=== PATIENT | female | born 1960 | race Caucasian/White ===

== ENCOUNTER 2023-01-06 09:32 | Outpatient (AMB) | payer OTHER, SELFPAY ==
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
[2023-01-06 09:40] VITALS: BP 112/82; PULSE 70; O2SAT 96; BMI 41.0
== END 2023-01-06 10:21 | disposition home or self-care (01) ==
LOC: HO.HSMS 09:32
PROVIDERS: PCP Internal Medicine; Visit Provider Psychiatry & Neurology Neurology
DX: G43.909 Migraine, unspecified, not intractable, without status migrainosus (principal); G37.9 Demyelinating disease of central nervous system, unspecified
CPT/HCPCS: 99204

== ENCOUNTER → 2023-01-06 09:32 | Outpatient (BNVA) | payer OTHER, SELFPAY | PROVIDERS: PCP Internal Medicine; Visit Provider Psychiatry & Neurology Neurology | DX: G43.909 Migraine, unspecified, not intractable, without status migrainosus (principal); G37.9 Demyelinating disease of central nervous system, unspecified | CPT/HCPCS: 99202 ==

== ENCOUNTER 2023-03-17 11:11 | Outpatient (REF) | payer OTHER, SELFPAY ==
--- NOTE | ~2023-03-17 | MR_ITS ---
EXAMINATION: MR BRAIN WITHOUT AND WITH CONTRAST CLINICAL INFORMATION: Demyelinating disease COMPARISON: Outside MRI of the brain 07/24/2019 TECHNIQUE: Multiplanar multisequence MR imaging of the brain was obtained without and following the administration of 10 mL Gadavist intravenous contrast. FINDINGS: There is no acute infarct on diffusion-weighted imaging. There is no intracranial hemorrhage on iron-sensitive imaging. No extra-axial collection or mass effect/herniation. Allowing for differences in imaging technique, stable burden (greater than 30 lesions) of demyelinating disease in the supratentorial brain compared to MRI from 07/24/2019. No definite new lesions are identified. No hydrocephalus. The ventricles are normal in morphology and size. No abnormal parenchymal or extra-axial enhancement. The major flow voids at the skull base are preserved. The midline structures are normal. The cerebellar tonsils are normally positioned. The craniocervical junction is normal. Marrow signal is within normal limits. The visualized soft tissues are without significant abnormality. No signal abnormality within the paranasal sinuses or within the mastoid air cells. MR/MR head/brain wo/w con IMPRESSION: Stable burden of demyelinating disease in the supratentorial brain compared to MRI from 07/24/2019. No evidence of active demyelination.
[2023-03-17] MEDS: gadobutroL 10 ML VIAL IVPUSH (12:41)
== END 2023-03-17 11:12 | disposition home or self-care (01) ==
LOC: HO.MRI 11:11
PROVIDERS: PCP Internal Medicine; Visit Provider Psychiatry & Neurology Neurology
DX: G37.9 Demyelinating disease of central nervous system, unspecified (principal)
CPT/HCPCS: 70553; A9585

== ENCOUNTER 2023-07-11 09:37 | Outpatient (AMB) | payer OTHER, SELFPAY ==
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
[2023-07-11 09:43] VITALS: BP 108/78; PULSE 84; RESP 16; O2SAT 95; BMI 40.1
== END 2023-07-11 10:12 | disposition home or self-care (01) ==
PROVIDERS: PCP Internal Medicine; Visit Provider Psychiatry & Neurology Neurology
DX: G43.909 Migraine, unspecified, not intractable, without status migrainosus (principal); G37.9 Demyelinating disease of central nervous system, unspecified
CPT/HCPCS: 99214

== ENCOUNTER → 2023-07-11 09:37 | Outpatient (BNVA) | payer OTHER, SELFPAY | PROVIDERS: PCP Internal Medicine; Visit Provider Psychiatry & Neurology Neurology | DX: G37.9 Demyelinating disease of central nervous system, unspecified (principal); G43.909 Migraine, unspecified, not intractable, without status migrainosus | CPT/HCPCS: 99212 ==

== ENCOUNTER 2024-03-15 09:03 | Outpatient (AMB) | payer OTHER, SELFPAY ==
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
[2024-03-15 09:04] VITALS: BP 116/78; PULSE 74; O2SAT 94; BMI 37.8
== END 2024-03-15 09:31 | disposition home or self-care (01) ==
PROVIDERS: PCP Internal Medicine; Visit Provider Psychiatry & Neurology Neurology
DX: R20.0 Anesthesia of skin (principal); R20.2 Paresthesia of skin; G43.909 Migraine, unspecified, not intractable, without status migrainosus
CPT/HCPCS: 99214; G2211

== ENCOUNTER → 2024-03-15 09:03 | Outpatient (BNVA) | payer OTHER, SELFPAY | PROVIDERS: PCP Internal Medicine; Visit Provider Psychiatry & Neurology Neurology | DX: G43.909 Migraine, unspecified, not intractable, without status migrainosus (principal); R20.0 Anesthesia of skin; R20.2 Paresthesia of skin | CPT/HCPCS: 99212 ==

== ENCOUNTER 2024-03-29 14:34 | Outpatient (REF) | payer OTHER, SELFPAY ==
--- NOTE | 2024-03-29 14:38 | EMG_ITS ---
Chief complaint: Patient reports new onset left leg numbness 2 months ago. She said it started only after she banged left lateral leg while cleaning at home and developed a swelling in that area. She has numbness on left lateral foot and plantar aspect. One month after, noted right foot getting numb as well. Denies any back pain. History of diet-controlled diabetes and thyroid disorder. History of stroke 6 years ago. Reason for referral: Evaluate for neuropathy Referred by: Dr. Stewart Procedure done: Bilateral lower extremity NCS/EMG Precautions and/or limitations: None The limb temperature was monitored continuously and remained between 32-36 degrees C during the performance of the NCS. Nerve Conduction Studies Anti Sensory Summary Table ?Stim Site NR Onset (ms) Norm Onset (ms) Peak (ms) Norm Peak (ms) O-P Amp (?V) Norm O-P Amp Site1 Site2 Delta-0 (ms) Dist (cm) Alec (m/s) Norm Alec (m/s) Left Sural Anti Sensory (Lat Mall) Calf ? 2.4 2.8 <4.0 1.1 >5.0 Calf Lat Mall 2.4 14.0 58 ? 2.7 3.0 1.9 Right Sural Anti Sensory (Lat Mall) Calf ? 2.7 3.1 <4.0 3.6 >5.0 Calf Lat Mall 2.7 14.0 52 Motor Summary Table ?Stim Site NR Onset (ms) Norm Onset (ms) O-P Amp (mV) Norm O-P Amp iAmp (mV) Amp (1st) (%) Site1 Site2 Delta-0 (ms) Dist (cm) Alec (m/s) Norm Alec (m/s) Left Peroneal Motor (Ext Dig Brev) Ankle ? 4.9 <4.0 2.2 >2.5 2.5 100.0 Ankle Ext Dig Brev 4.9 0.0 B Fib ? 11.1 2.5 2.8 113.6 B Fib Ankle 6.2 33.5 54 >40 Poplt ? 12.1 2.3 2.8 104.5 Poplt B Fib 1.0 4.0 40 >40 Right Peroneal Motor (Ext Dig Brev) Ankle ? 4.2 <4.0 2.4 >2.5 2.5 100.0 Ankle Ext Dig Brev 4.2 0.0 B Fib ? 11.3 1.8 2.0 75.0 B Fib Ankle 7.1 33.0 46 >40 Poplt ? 12.1 1.8 2.0 75.0 Poplt B Fib 0.8 4.0 50 >40 Left Tibial Motor (Abd Magana Brev) Ankle ? 4.8 <5 3.9 >2.5 6.3 100.0 Ankle Abd Magana Brev 4.8 0.0 Knee ? 13.7 3.4 4.5 87.2 Knee Ankle 8.9 39.0 44 >40 Right Tibial Motor (Abd Magana Brev) Ankle ? 3.9 <5 5.6 >2.5 7.9 100.0 Ankle Abd Magana Brev 3.9 0.0 Knee ? 15.3 1.7 2.0 30.4 Knee Ankle 11.4 42.0 37 >40 EMG ?Side Muscle Nerve Root Ins Act Fibs Psw Amp Dur Poly Recrt Int Pat Comment Right AbdHallucis MedPlantar S1-2 Incr Nml Nml Nml Nml 0 Nml Complete Right AntTibialis Dp Br Peron L4-5 Nml Nml Nml Nml Nml 0 Nml Complete Right PostTibialis Tibial L5, S1 Nml Nml Nml Nml Nml 0 Nml Complete Right MedGastroc Tibial S1-2 Nml Nml Nml Nml Nml 0 Nml Complete Right VastusMed Femoral L2-4 Nml Nml Nml Nml Nml 0 Nml Complete Left AbdHallucis MedPlantar S1-2 Nml Nml Nml Nml Nml 0 Nml Complete Left AntTibialis Dp Br Peron L4-5 Nml Nml Nml Nml Nml 0 Nml Complete Left PostTibialis Tibial L5, S1 Nml Nml Nml Nml Nml 0 Nml Complete Left MedGastroc Tibial S1-2 Nml Nml Nml Nml Nml 0 Nml Complete Left VastusMed Femoral L2-4 Nml Nml Nml Nml Nml 0 Nml Complete Paraspinal EMG ?Side Muscle Nerve Root Ins Act Fibs Psw Comment Right Lumbar Upper Rami Nml Nml Nml Right Lumbar Mid Rami Nml Nml Nml Right Lumbar Lower Rami Nml Nml Nml Left Lumbar Upper Rami Nml Nml Nml Left Lumbar Mid Rami Nml Nml Nml Left Lumbar Lower Rami Nml Nml Nml FINDINGS: Left peroneal nerve showed prolonged distal latency, small amplitude and slight slowing conduction velocity across fibular neck. Right peroneal nerve showed prolonged distal latency, small amplitude and normal conduction velocity. Right tibial nerve showed normal distal latency, small amplitude and mildly slow conduction velocity. Left tibial nerve within normal. Bilateral sural nerves showed normal peak latencies but very small amplitudes. Needed high stimulation to get any results, otherwise it would have been nonreactive. Concentric needle EMG was performed in selected muscles of the bilateral lower extremity and lumbar paraspinals. Study revealed signs of electric abnormalities as shown in the table above. Right AH showed increased insertional activity. IMPRESSION: 1. This is an abnormal study. 2. 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 3. There is no electrodiagnostic evidence for lumbosacral plexopathy or lumbar radiculopathy. Thank you for your kind referral. Bing Dixon MD, [place] Board Certified, [place] [employer] and [employer] (ABPMR) Board Certified, [place] Board [employer] Electrodiagnostic [employer] (ABEM) CODIN [id number] x 2 MTDD
== END 2024-03-29 14:35 | disposition home or self-care (01) ==
LOC: HO.NEURO 14:34
PROVIDERS: PCP Internal Medicine; Visit Provider Psychiatry & Neurology Neurology
DX: R20.0 Anesthesia of skin (principal); R20.2 Paresthesia of skin
CPT/HCPCS: 95886; 95909

== ENCOUNTER → 2024-03-29 14:38 | Outpatient (BNV) | payer OTHER, SELFPAY | PROVIDERS: PCP Internal Medicine; Visit Provider Physical Medicine & Rehabilitation | DX: R20.2 Paresthesia of skin (principal); R20.0 Anesthesia of skin; G62.89 Other specified polyneuropathies | CPT/HCPCS: 95886; 95909 ==

== ENCOUNTER 2024-05-16 11:30 | Outpatient (AMB) | payer OTHER, SELFPAY ==
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
[2024-05-16 11:35] VITALS: BMI 38.1
== END 2024-05-16 12:12 | disposition home or self-care (01) ==
PROVIDERS: PCP Internal Medicine; Visit Provider Psychiatry & Neurology Neurology
DX: G62.9 Polyneuropathy, unspecified (principal); G43.909 Migraine, unspecified, not intractable, without status migrainosus
CPT/HCPCS: 99214

== ENCOUNTER → 2024-05-16 11:30 | Outpatient (BNVA) | payer OTHER, SELFPAY | PROVIDERS: PCP Internal Medicine; Visit Provider Psychiatry & Neurology Neurology | DX: G62.9 Polyneuropathy, unspecified (principal); G43.909 Migraine, unspecified, not intractable, without status migrainosus | CPT/HCPCS: 99212 ==

== ENCOUNTER → 2024-07-30 09:56 | Outpatient (BNV) | payer OTHER, SELFPAY | PROVIDERS: PCP Internal Medicine; Visit Provider Radiology Diagnostic Radiology | DX: R41.82 Altered mental status, unspecified (principal) | CPT/HCPCS: 70551 ==

== ENCOUNTER 2024-07-30 09:57 | Outpatient (REF) | payer OTHER, SELFPAY ==
--- NOTE | ~2024-07-30 | MR_ITS ---
EXAMINATION: MR BRAIN WITHOUT CONTRAST CLINICAL INFORMATION: Cognitive and behavioral changes. COMPARISON: March 17, 2023. TECHNIQUE: MRI of the brain was obtained using routine sequences without contrast. FINDINGS: No restricted diffusion. Bilateral, multifocal, patchy, subcortical and deep white matter hyperintense T2 FLAIR signal abnormality involving centrum semiovale and patel radiata both hemispheres, the most conspicuous in the frontal regions. No signal abnormality within the infratentorial compartment. Flow-void signal within the main cerebral vessels is normal. Sellar/suprasellar region demonstrated intrasellar CSF prominence suggesting diaphragmatic sella insufficiency. Craniocervical junction is intact and normal. No signal abnormality within the orbits. No signal abnormality within the posterior cranial fossa contents. MR/MR head/brain wo con IMPRESSION: Consider demyelinating plaques, supratentorial compartment with similar morphology and distribution. No acute brain abnormality. Electronically signed by: Joce Coyle MD 07/30/2024 11:05 AM [place]
--- OUTSIDE RECORDS SUMMARY | 2024-07-30 10:33 | XMS_ITS | Encounter Summary ---
Author Organization [facility] Address [address] [place] [address] Care Team Providers Care Rug Hooker Name Role Phone Zana Chappell MD Primary Care Provider [phone] Reason for Visit * Reason Comments Follow-up F/u Maury foot pain Encounter Details Date Type Department Care Team ([facility] st Contact Info) Description 07/04/2024 10:00 AM EST Office Visit Orthopedic Surgery - [place] [address] [phone] Dewayne Cortez, DPM [address] [address] Arthritis of left ankle (Primary Dx); Bilateral foot pain; Bilateral ankle pain; Plantar fascial fibromatosis; Arthritis of right ankle; Posterior tibial tendon dysfunction (PTTD) of both lower extremities Social History Tobacco Use Types Packs/Day Years Used Date Smoking Tobacco: Never Smokeless Tobacco: Never Tobacco Cessation:Counseling Given: Not Answered Alcohol Use Standard Drinks/Week Comments No 0 (1 standard drink = 0.6 oz pur e alcohol) Sex and Gender Information Value Date Recorded Sex Assigned at Female 07/27/2024 11:46 AM EST Gender Identity Female 07/27/2024 11:46 AM EST Sexual Orientation Not on file Job Start Date Occupation Industry Not on file Not on file Not on file documented as of this encounter Last Filed Vital Signs Vital Sign Reading Time Taken Comments Blood Pressure - - Pulse - - Temperature - - Respiratory Rate - - Oxygen Saturation - - Inhaled Oxygen Concentration - - Weight 105 kg (232 lb) 07/04/2024 9:59 AM EST Height 167.6 cm (5' 5.98 ) 07/04/2024 9:59 AM ES T Body Mass Index 37.46 07/04/2024 9:59 AM EST documented in this encounter Progress Notes * Dewayne Cortez, VALENTINA - 07/04/2024 10:00 AM ESTAssociated Order(s): Injection tendon or ligament Post-Procedure Diagnose(s): Plantar fascial fibromatosis S Patient presents with multiple complaints and she recently had EMG/NCV study to better evaluate forher nerve conductive study and spine states she does not really have any back pain but did get the study done and is awaiting the results does not that she has some other neurological conditions associated worsening pain discomfort of her heels Patient reports that she was worked up for an infection of her right great toe there is no ingrown nail she did call her primary care doctor who was able to get her in starting a course of oral antibiotics reports that her right great toe is completely resolved Patient also reports that she had a heel injection last appointment she states that she feels like did not work she states she is wonder if it is because she got too active after the injection she went walking heavily on her foot and states the pain still throbs and did not improve at today's appointment is the same as prior to the injection she would like to know what her treatment options are she is willing to consider another injection today x-rays were taken of both feet ROS: GENERAL: Pt denies nausea, fever, vomiting, chills, or shortness of breath. Pt in NAD. CARDIOLOGY: pt denies chest pain, palpitations LUNGS: pt denies shortness of breath MUSCULOSKELETAL: See HPI, otherwise no joint pain or swelling, back pain, or muscle pain. SKIN: see HPI, otherwise no lesions, rash or itching NEURO: No persistent headache, weakness or numbness The remainder of the review of systems is noncontributory PAST MEDICAL HISTORY: Patient Active Problem List Diagnosis Code Seasonal allergies J30.2 Edema R60.9 GERD (gastroesophageal reflux disease) K21.9 Varicose veins I83.90 Thrombophlebitis I80.9 Obesity (BMI 30-39.9) E66.9 Vitamin D deficiency E55.9 History of gastric ulcer Z87.11 HTN (hypertension) I10 DVT (deep vein thrombosis) in O22.30 Colonic polyp K63.5 Diverticulosis of colon K57.30 History of CVA (cerebrovascular accident) without residual deficits Z86.73 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 (HCC) G37.9 Anxiety F41.9 Hypothyroidism E03.9 Hyperlipidemia E78.5 Migraine G43.909 Depression F32.A Type 2 diabetes mellitus without complication, without long-term current use of insulin (HCC) E11.9 Mild cognitive disorder F09 Postsurgical dumping syndrome K91.1 Orthostatic hypotension I95.1 Female cystocele N81.10 Hypoglycemia E16.2 History of COVID-19 Z86.16 Pruritus L29.9 Moderate persistent asthma J45.40 Skin cancer C44.90 Multiple pulmonary nodules R91.8 SOCIAL HISTORY: Social History Tobacco Use Smoking status: Never Passive exposure: Never Smokeless tobacco: Never Substance Use Topics Alcohol use: No History Last Reviewed by Josefina Elizalde on 03/09/2024 at 11:46 AM Sections Reviewed Tobacco ACTIVE MEDICATIONS: Current Outpatient Medications Medication Sig Dispense Refill phentermine 15 MG capsule Take 1 Capsule by mouth every morning for 30 days. 30 Capsule 2 topiramate (TOPAMAX) 50 MG tablet Take 2 Tablets by mouth daily for 30 days. 60 Tablet 1 Disposable Gloves Misc 2 Each by Does not apply route daily for 30 days. Height: Ht Readings from Last 1 Encounters: 11/17/23 : 5' 6 (1.676 m) Weight: Wt Readings from Last 1 Encounters: 11/17/23 : 243 lb 12.8 oz (110.6 kg) Duration of need: indefinite Diagnosis: Incontinence of Urine[R32] Edema [R60.9] Vertigo[R42] Fall Risk[Z91.81] Class 3 severe obesity due to excess calories with body mass index (BMI) of 40.0 to 44.9 in adult (HCC) [E66.01, Z68.41] History of CVA (cerebrovascular accident) without residual deficits [Z86.73] 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 (HCC) [G37.9] Type 2 diabetes mellitus without complication, without long-term current use of insulin (HCC) [E11.9] Mild cognitive disorder [F09] Orthostatic hypotension [I95.1] Patient phone: [phone] (home) 2 Packet 11 ALBUTEROL SULFATE (ProAir HFA) 108 (90 Base) MCG/ACT Aero Soln Inhale 2 Puffs into the lungs every 6 hours as needed for Cough, Wheezing or Shortness of Breath for up to 30 days. 1 inhaler and 11 refills 1 g 11 budesonide-formoterol (Symbicort) 160-4.5 MCG/ACT inhaler Inhale 2 Puffs into the lungs 2 times daily. 1 inhaler and 11 refills 1 g 11 cetirizine (ZYRTEC) 10 MG tablet Take 1 Tablet by mouth daily. 90 Tablet 1 aspirin (Aspirin 81) 81 MG EC tablet Take 1 Tablet by mouth daily. 30 Tablet 5 pantoprazole (PROTONIX) 40 MG tablet Take 1 Tablet by mouth daily. 90 Tablet 0 simvastatin (ZOCOR) 5 MG tablet Take 1 Tablet by mouth at bedtime. 90 Tablet 1 famotidine (PEPCID) 20 MG tablet Take 1 Tablet by mouth 2 times daily. 180 Tablet 1 amlodipine (NORVASC) 5 MG tablet Take 2 Tablets by mouth daily. 180 Tablet 1 levothyroxine (SYNTHROID, LEVOTHROID) 88 MCG tablet Take 1 tablet by mouth once daily 90 Tablet 0 Cholecalciferol (Vitamin D3) 50 MCG (2000 UT) Tab Take 1 tablet by mouth once daily 90 Tablet 0 Multiple Vitamins-Minerals (Multivital) Tab Take 1 Tablet by mouth daily. 90 Tablet 1 Wheat Dextrin (Benefiber) Powder Take 4 g by mouth daily. 120 g 0 Glucose Blood (FREESTYLE LITE) Strip Use to test blood sugar once daily for hypoglycemia Dx: e11.9 100 Strip 1 Blood Glucose Monitoring Suppl (FreeStyle Lite) Device Check blood sugar daily 1 Each 0 FreeStyle Lancets Misc Inject 1 Strip into the skin daily. Use to check BS as needed for hypoglycemia 100 Each 5 budesonide-formoterol (Symbicort) 160-4.5 MCG/ACT inhaler Inhale 2 Puffs into the lungs 2 times daily for 90 days. 3 g 3 furosemide (LASIX) 20 MG tablet TAKE 1 TABLET BY MOUTH ONCE DAILY NEEDED FOR EDEMA 30 Tablet 0 Meclizine HCl 12.5 MG Tab Take 1 Tablet by mouth 3 times daily as needed (dizziness). 90 Tablet 0 fluticasone 50 MCG/ACT nasal spray Use 1 spray(s) in each nostril once daily Strength: 50 MCG/ACT 16 g 1 nitroGLYCERIN (NITROSTAT) 0.[address] 1 Tablet under the tongue every 5 minutes as needed for Chest pain. 1 mL 0 Diclofenac Sodium 1 % Gel Apply 1 g topically 3 times daily as needed (bilateral knee O/A). 450 g 1 hydrOXYzine (ATARAX) 25 MG tablet TAKE 1 TABLET BY MOUTH TWICE DAILY NEEDED FOR ANXIETY escitalopram (LEXAPRO) 20 MG tablet Take 20 mg by mouth daily. Glucagon (BAQSIMI ONE PACK) 3 MG/DOSE Powder 1 Units by Nasal route as needed (Hypoglycemia). 10 Each 0 sumatriptan (IMITREX) 100 MG tablet Take 1 Tab by mouth daily as needed for Migraine. May repeat dose once after 2 hours, if needed. 6 Tab 0 Zolpidem Tartrate 10 MG Tab Take 1 tablet by mouth at bedtime as needed. No current facility-administered medications for this visit. ALLERGIES: Lipitor [atorvastatin]; Seasonal allergies; and Trazodone PHYSICAL EXAM: Weight 235 lb (106.6 kg). Estimated body mass index is 37.93 kg/m?? as calculated from the following: Height as of 03/20/24: 5' 6 (1.676 m). Weight as of this encounter: 235 lb (106.6 kg). BMI PLAN BMI BMI is greater than 25.0 (above the normal range) - see Plan PODIATRIC EXAMINATION: GENERAL: Patient appears well nourished, with NAD. VASCULAR: Dorsalis pedis pulses are 1/4 bilaterally and Posterior tibial pulses are 1/4 bilaterally. Capillary filling time within normal limits the digits. No pallor on elevation or rubor on dependency. Diminished hair growth. Present varicosities. +1 pitting edema bilaterally denies rest pain or claudication pain. NEUROLOGICAL: Sharp/dull sensation intact, protective sensation intact 10/10 with 5.07 semmes teresa bilaterally, vibratory sensation with tuning fork intact to the tibial tuberosity. ORTHOPEDIC: Good muscle strength 5/5 of all flexors and extensors. Dorsi flexion of ankle ,0 degrees, plantar flexion WNL. No muscle atrophy. Weakness the posterior tibial tendon bilaterally 4 out of5 to 3 out of 5 muscle strength bilateral unable to perform single or double heel raise Palpation of the sinus tarsi bilaterally arthritis of the subtalar joint noted lateral gutter and ankle joint noted with lateral impingement ankle joint bilaterally Heel pain localized to the medial tubercle of the right and left calcaneus. Negative heel squeeze pain, Negative lateral calcaneal wall pain, Negative posterior heel pain. Negative pain of the achilles insertion. Negative tinells. Negative pain of the posterior tibial tendon. No palpable fibrous mass mid arch. DERMATOLOGICAL:.Hyperkeratotic tissue subfifth metatarsal bilaterally with diffuse pain on palpation of metatarsal head the fifth BIOMECHANICS: STJ ROM wnl, MTJ ROM crepitation bilateral midtarsal joint worse of the third and second metatarsal cuneiform articulation bilaterally overlying extensor tendon tendons at the inferior aspect of the retinaculum are irritated bilateral without muscle deficits, 1st MPJ ROM wnl. Diffuse discomfort/pain on palpation of the fifth metatarsal bilaterally underlying callus Ovation of the lateral bed of the right ankle joint No pain in the left forefoot some localized irritation of the sural nerve left foot IMAGING: [facility] Imaging Result Report Patient: Loida Easley Date of Service: 12/03/21 Patient Gender: Female Ordering Provider: Dewayne Cortez : 1960 Final ORTHO X-RAY FOOT (3 VIEWS) Exam Date: 12/03/2021 1:27 PM Ordering Diagnosis: Foot pain, bilateral Right foot weightbearing 3 views Findings Rectus foot type with slight bunion deformity prominent at the interphalangeus Lateral view most consistent with infracalcaneal spurring moderate to severe Impression Significant calcaneal spurring with rather rectus foot type Left foot weightbearing 3 views Findings Rectus foot type with slight bunion deformity prominent at the interphalangeus Lateral view most consistent with infracalcaneal spurring moderate to severe Impression Significant calcaneal spurring with rather rectus foot type Reading Physician: Signed by: Dewayne Cortez DPM on 12/03/2021 6:31 PM This report was sent to: Dewayne Cortez at [address] [place] [address] [place] [address]. IMPRESSION: 1. Arthritis of left ankle 2. Bilateral foot pain XR Foot 3+ Views bilat 3. Bilateral ankle pain XR Ankle 3+ Views Right 4. Plantar fascial fibromatosis 5. Arthritis of right ankle 6. Posterior tibial tendon dysfunction (PTTD) of both lower extremities PLAN: Radiographs reviewed of both ankles and both feet consistent with osteoarthritic changes pes planusfoot type no acute fracture Worsening degenerative changes of both foot and ankles discussed and reviewed Patient's had issues being consistent with topical anti-inflammatories or utilizing any of the custom AFO braces UCBLs previously prescribed Due to her weight and age she is not a good surgical candidate for primary hindfoot fusions is at high risk for complication Alternative surgical options and nonsurgical options were discussed and reviewed Surgery discussed with patient in detail that discussed with patient that she is advanced arthritisof both feet she may benefit from primary arthrodesis of midtarsal joint given chronic pain discomfort recovery from surgery is 3 months which patient says she is not able to tolerate Follow-up in 2 weeks Strapping padding applied to the left foot and ankle Injection of plantar fascia left heel was performed after consent was obtained. Risks and benefits discussed in detail with patient and include but are not limited to risk of infection risk of recurrence risk of steroid flare. Injection given to the left heel of half cc 1% lidocaine half cc of Kenalog 40 Injection tendon or ligament Indications: pain Details: 25 G needle Medications: 0.5 mL lidocaine (PF) 1 %; 20 mg triamcinolone acetonide 40 mg/mL Informed Consent: Site: Foot ligament tendon Dewayne Cortez DPM documented in this encounter Plan of Treatment Upcoming Encounters Date Type Department Care Team (Late st Contact Info) Description 07/31/2024 3:00 PM EST Appointment [facility] CT Scan [address] [place] [phone] 08/08/2024 3:15 PM EST Office Visit Thoracic Surgery - [place] [address] [phone] Dewayne Stephens PA [address] [address] 08/20/2024 2:30 PM EST Office Visit Internal Medicine - [place] [address] [place] [address] Zana Chappell MD [address] [place] [address] 08/21/2024 10:45 AM EST Office Visit Orthopedic Surgery - [place] [address] [facility] 250 [place] [phone] Dewayne Cortze DPM [address] [address] 09/06/2024 10:30 AM EDT Office Visit Pulmonolgy - [place] 175 [facility] 200 [place] [phone] Ronda Henry MD 175 [facility] 200 [place] [address] 10/02/2024 10:45 AM EDT Office Visit Bariatric Surgery [facility] [address] [phone] Tommie Guy MD [address] [address] 01/28/2025 11:00 AM EDT Appointment Radiology Department [address] [phone] 03/14/2025 10:30 AM EDT Office Visit Vascular Surgery - [place] 300 [facility] [address] [place] [address] Sandhya Eng PA 300 [facility] [address] [place] [address] documented as of this encounter Procedures Procedure Name Priority Date/Time Associated Diagnosis Comments INJECTION TENDON OR LIGAMENT Routine 07/04/2024 10:00 AM EST Plantar fascial fibromatosis documented in this encounter Results * XR Ankle 3+ Views Right (07/04/2024 10:07 AM EST) Anatomical Region Laterality Modality Lower Extremities, Ankle Right Compute d Radiography Narrative 07/04/2024 12:34 PM EST Right ankle ??3 views No fracture. No radiopaque foreign ?joint spaces ? Arthritis ?? moderate ?? Left ankle ??3 views No fracture. No radiopaque foreign ?joint spaces ? Arthritis ?? moderate ?? Dewayne Cortez DPM IMG XR PROCEDURES * XR Foot 3+ Views bilat (07/04/2024 10:07 AM EST) Anatomical Region Laterality Modality Lower Extremities, Foot Bilateral Computed Radiography Narrative 07/04/2024 12:34 PM EST Right foot ??3 views No fracture. No radiopaque foreign ?joint spaces ? Arthritis ?? moderate ?? Left foot 3 views No fracture. No radiopaque foreign ?joint spaces ? Arthritis ?? moderate ?? Dewayne Cortez DPM IMG XR PROCEDURES * Injection tendon or ligament (07/04/2024 10:00 AM EST) Narrative Dewayne Cortez DPM - 07/04/2024 10:00 AM EST Dewayne Cortez DPM ? 07/04/2024 12:36 PM Injection tendon or ligament Indications: pain Details: 25 G needle Medications: 0.5 mL lidocaine (PF) 1 %; 20 mg triamcinolone acetonide 40 mg/mL Informed Consent: ??Site: ??Foot ligament tendon Dewayne Cortez DPM IN CLINIC/BEDSIDE ORDERABLES documented in this encounter Visit Diagnoses Diagnosis Arthritis of left ankle- Primary Bilateral foot pain Bilateral ankle pain Plantar fascial fibromatosis Arthritis of right ankle Posterior tibial tendon dysfunction (PTTD) of both lower extremities Encounter for screening mammogram for breast cancer documented in this encounter Administered Medications Inactive Administered Medications - up to 3 most recent administrations Medication Order MAR Action Action Date Dose Rate Site lidocaine (PF) (XYLOCAINE-MPF) 1 % injection 0.5 mL 0.5 mL, injection, Once PRN Procedure, Starting on Tue07/04/24 at 1000, For 1 dose Given 07/04/2024 10:00 AM EST 0.5 mL triamcinolone acetonide (KENALOG-40) 40 mg/mL injection 20 mg 20 mg, intra-articular, Once PRN Procedure, Starting on Tue07/04/24 at 1000, For 1 dose Given 07/04/2024 10:00 AM EST 20 mg documented in this encounter Additional Health Concerns Assessment Noted Time PHQ-9 Depression Total Score: 18 024 9:55 AM EST documented as of this encounter Care Teams Rug Hooker Relationship Specialty Start Date End Date Zana Chappell MD [address] [place] [id number] PCP - General Internal Medicine 01/03/19 documented as of this encounter
--- OUTSIDE RECORDS SUMMARY | 2024-07-30 10:33 | XMS_ITS | Encounter Summary ---
Author Organization [facility] Address [address] [place] [address] Care Team Providers Care Financial Services Associate Name Role Phone Zana Chappell MD Primary Care Provider [phone] Reason for Visit * Reason Onset Date Comments Med Refill 06/05/2024 Encounter Details Date Type Department Care Team ([facility] Contact Info) Description 06/05/2024 Telephone Internal Medicine - [facility] [address] [place] [phone] Zana Chappell MD [address] [place] [phone] Med Refill Social History Tobacco Use Types Packs/Day Years Used Date Smoking Tobacco: Never Smokeless Tobacco: Never Alcohol Use Standard Drinks/Week Comments No 0 (1 standard drink = 0.6 oz pur e alcohol) Sex and Gender Information Value Date Recorded Sex Assigned at Female 07/27/2024 11:46 AM EST Gender Identity Female 07/27/2024 11:46 AM EST Sexual Orientation Not on file Job Start Date Occupation Industry Not on file Not on file Not on file documented as of this encounter Progress Notes * Trish Elliott - 06/05/2024 8:08 AM EST JENN 02/20/24 06/14/24 Daily-Adelia Multivitamin Oral Tablet Take 1 tablet by mouth once daily 90 tablets documented in this encounter Plan of Treatment Upcoming Encounters Date Type Department Care Team (Late st Contact Info) Description 07/31/2024 3:00 PM EST Appointment [facility] CT Scan [address] [place] [phone] 08/08/2024 3:15 PM EST Office Visit Thoracic Surgery - [address] [facility] [address] [place] [address] Dewayne Stephens PA 299 [facility] 410 [place] [address] 08/20/2024 2:30 PM EST Office Visit Internal Medicine - [place] [address] [place] [address] Zana Chappell MD [address] [place] [address] 08/21/2024 10:45 AM EST Office Visit Orthopedic Surgery [facility] 250 175 [facility] 250 [place] [phone] Dewayne Cortez DPM [address] [address] 09/06/2024 10:30 AM EDT Office Visit Pulmonolgy - [address] 175 [facility] 200 [place] [phone] Ronda Henry MD 175 [facility] 200 [place] [address] 10/02/2024 10:45 AM EDT Office Visit Bariatric Surgery [facility] [address] [phone] Tommie Guy MD [address] [address] 01/28/2025 11:00 AM EDT Appointment Radiology Department - [address] [address] 03/14/2025 10:30 AM EDT Office Visit Vascular Surgery - [address] [place] [address] Sandhya Eng PA [address] [place] [address] [place] [address] documented as of this encounter Visit Diagnoses Not on filedocumented in this encounter Care Teams Financial Services Associate Relationship Specialty Start Date End Date Zana Chappell MD [address] [place] [phone] PCP - General Internal Medicine 01/03/19 documented as of this encounter
--- OUTSIDE RECORDS SUMMARY | 2024-07-30 10:33 | XMS_ITS | Encounter Summary ---
Author Organization [facility] Address [address] [place] [address] Care Team Providers Care Clinical Pharmacy Technician Name Role Phone Zana Chappell MD Primary Care Provider [phone] Reason for Visit * Reason Comments Follow-up F/u Maury foot pain Encounter Details Date Type Department Care Team ([facility] st Contact Info) Description 07/18/2024 10:30 AM EST Office Visit Orthopedic Surgery - [place] [address] [phone] Dewayne Cortez, DPM [address] [address] Plantar fascial fibromatosis (Primary Dx); Arthritis of left ankle; Posterior tibial tendon dysfunction (PTTD) of both lower extremities; Diabetic mononeuropathy simplex (CMS/HCC) Social History Tobacco Use Types Packs/Day Years [...] - Inhaled Oxygen Concentration - - Weight 106 kg (233 lb) 07/18/2024 10:53 AM EST Height 167.6 cm (5' 5.98 ) 07/18/2024 10:[address] Body Mass Index 37.63 07/18/2024 10:53 AM EST documented in this encounter Progress Notes * Dewayne Cortez, DPM - 07/18/2024 10:30 AM EST S Patient presents today saying that injections have not been helping she brought her sister's appointment still states she getting left foot pain throbbing achy is a 5 out of 10 has been using insole with minimal improvement does not does not she see neurology as well states that she is getting throbbing achy pain in her left foot to 5 out of 10 and not improving ROS: GENERAL: Pt denies nausea, fever, vomiting, [...] (BMI) of 40.0 to 44.9 in adult ([facility]) [E66.01, Z68.41] History of CVA (cerebrovascular accident) without residual deficits [Z86.73] 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 IMPRESSION: 1. Plantar fascial fibromatosis 2. Arthritis of left ankle 3. Posterior tibial tendon dysfunction (PTTD) of both lower extremities 4. Diabetic mononeuropathy simplex (CMS/HCC) PLAN: Radiographs reviewed of both ankles and both feet consistent with osteoarthritic changes pes planusfoot type no acute fracture Patient follow-up with neurology has neuritis diabetics Worsening degenerative changes of both foot and ankles discussed and reviewed Patient's had issues being consistent with topical anti-inflammatories or utilizing any of the custom fracture boot for and dispensed he went to left lower extremities Follow-up in 1 month Dewayne Cortez DPM documented in this encounter Plan of Treatment Upcoming Encounters Date Type Department Care Team ([facility] st Contact Info) Description 07/31/2024 3:00 PM EST Appointment [facility] CT Scan [address] [place] [address] 08/08/2024 3:15 PM EST Office Visit Thoracic Surgery - [place] 299 [facility] 410 [place] [address] Dewayne Stephens PA 299 [facility] 410 [place] [address] 08/20/2024 2:30 PM EST Office Visit Internal Medicine - [facility] 305 [place] [phone] Zana Chappell MD [address] [place] [address] 08/21/2024 10:45 AM EST Office Visit Orthopedic Surgery [facility] 250 175 [facility] 250 [place] [phone] Dewayne Cortez DPM [address] [address] 09/06/2024 10:30 AM EDT Office Visit Pulmonolgy - [place] 175 [facility] 200 [place] [phone] Ronda Henry MD 175 [facility] 200 [place] [address] 10/02/2024 10:45 AM EDT Office Visit Bariatric Surgery [facility] [address] [phone] Tommie Guy MD [address] [address] 01/28/2025 11:00 AM EDT Appointment Radiology Department [address] [phone] 03/14/2025 10:30 AM EDT Office Visit Vascular Surgery - [place] [address] [place] [address] Sandhya Eng PA [address] [place] [address] [place] [address] documented as of this encounter Visit Diagnoses Diagnosis Plantar fascial fibromatosis- Primary Arthritis of left ankle Posterior tibial tendon dysfunction (PTTD) of both lower extremities Diabetic mononeuropathy simplex (CMS/HCC) Type II or unspecified type diabetes mellitus with neurological manifestations, not stated as uncontrolled Encounter for screening mammogram for breast cancer documented in this encounter Additional Health Concerns Assessment Noted Time PHQ-9 Depression Total Score: 18 024 9:55 AM EST documented as of this encounter Care Teams Clinical Pharmacy Technician Relationship Specialty Start Date End Date Zana Chappell MD [address] [place] [address] PCP - General Internal Medicine 01/03/19 documented as of this encounter
--- OUTSIDE RECORDS SUMMARY | 2024-07-30 10:33 | XMS_ITS | Clinical Summary ---
Author Organization 175 [facility] Address [address] [place] [address] Phone Care Team Providers Care Laminating Machine Offbearer Name Role Phone Zana Chappell MD Primary Care Provider [phone] Allergies Active Allergy Reactions Criticality Noted Date Comments Atorvastatin 08/27/2015 Other Reaction(s): OTHER Muscle cramps Atorvastatin Calcium 04/13/2024 Other 12/03/2015 Seasonal Allergies Trazodone Swelling 08/17/2016 Medications Medication Sig Dispensed Refills Start Date End Date Status amLODIPine (NORVASC) 5 mg tablet Take 2 Tablets by mouth daily. 4 Active blood-glucose meter kit Check blood sugar daily 4 Active budesonide-form oteroL (SYMBICORT) 160-4.5 mcg/actuation inhaler Inhale 2 Puffs into the lungs 2 times daily. 1 inhaler and 11 refills 3 03/09/20 25 Active cetirizine (ZyrTEC) 10 mg tablet Take 1 Tablet by mouth daily. 3 Active cholecalciferol (VITAMIN D-3) 50 mcg (2,000 unit) tablet Take 1 tablet by mouth once daily 4 Active escitalopram (LEXAPRO) 20 mg tablet Take 20 mg by mouth daily. 2 Active famotidine (PEPCID) 20 mg tablet Take 1 Tablet by mouth 2 times daily. 4 Active fluticasone propionate (FLONASE) 50 mcg/actuation nasal spray Use 1 spray(s) in each nostril once daily Strength: 50 MCG/ACT 3 Active FREESTYLE LANCETS MISC Inject 1 Strip into the skin daily. Use to check BS as needed for hypoglycemia 4 Active furosemide (LASIX) 20 mg tablet TAKE 1 TABLET BY MOUTH ONCE DAILY NEEDED FOR EDEMA 3 Active glucagon (Baqsimi) 3 mg/actuation nasal spray 1 Units by Nasal route as needed (Hypoglycemia). 0 Active blood sugar diagnostic (FreeStyle Lite Strips) test strip Use to test blood sugar once daily for hypoglycemia Dx: e11.9 4 Active FA/mv,Ca,iron,m in/lycopene/lut (MULTIVITAL ORAL) Take 1 Tablet by mouth daily. 4 Active simvastatin (ZOCOR) 5 mg tablet Take 1 Tablet by mouth at bedtime. 4 Active SUMAtriptan (IMITREX) 100 mg tablet Take 1 Tab by mouth daily as needed for Migraine. May repeat dose once after 2 hours, if needed. 9 Active zolpidem (AMBIEN) 10 mg tablet Take 1 tablet by mouth at bedtime as needed. Active nitroglycerin (NITROSTAT) 0.4 mg SL tablet DISSOLVE ONE TABLET UNDER THE TONGUE EVERY 5 MINUTES NEEDED FOR CHEST PAIN. DO NOT EXCEED A TOTAL OF 3 DOSES IN 15 MINUTES 25 tablet 2 4 Active pantoprazole (PROTONIX) 40 mg EC tablet Take 1 tablet (40 mg total) by mouth 1 (one) time each day. Do not crush, chew, or split. 90 tablet 1 4 Active apixaban (Eliquis) 5 mg tablet Take 1 tablet (5 mg total) by mouth 2 (two) times a day. 180 tablet 4 Active Daily-Adelia, with folic acid, 400 mcg tablet Take 1 tablet by mouth 1 (one) time each day. 90 tablet 5 Active phentermine 15 mg capsuleIndicati ons:Class 2 obesity due to excess calories with body mass index (BMI) of 38.0 to 38.9 in adult, unspecified whether serious comorbidity present TAKE 1 CAPSULE BY MOUTH TWICE DAILY MAX DAILY AMOUNT: 30 MG 60 capsule 5 Active levothyroxine (SYNTHROID, LEVOTHROID) 88 mcg tabletIndicatio ns:Atrophy of thyroid (acquired) Take 1 tablet by mouth once daily 90 tablet 5 Active topiramate (Topamax) 100 mg tabletIndicatio ns:Class 2 obesity due to excess calories with body mass index (BMI) of 38.0 to 38.9 in adult, unspecified whether serious comorbidity present Take 1 tablet (100 mg total) by mouth at bedtime. 30 each 1 5 09/26/19 25 Active levothyroxine (SYNTHROID, LEVOTHROID) 88 mcg tablet Take 1 tablet by mouth once daily 4 07/23/19 25 Discontinued wheat dextrin (BENEFIBER CLEAR SF, DEXTRIN, ORAL) WHEAT DEXTRIN (BENEFIBER) POWDER : Take 4 g by mouth daily. 4 07/09/19 25 Discontinued phentermine 15 mg capsuleIndicati ons:Class 2 obesity due to excess calories with body mass index (BMI) of 38.0 to 38.9 in adult, unspecified whether serious comorbidity present Take 1 capsule (15 mg total) by mouth 2 (two) times a day. Max Daily Amount: 30 mg 60 each 4 07/17/19 25 Discontinued topiramate (TOPAMAX) 50 mg tabletIndicatio ns:Class 2 obesity due to excess calories with body mass index (BMI) of 38.0 to 38.9 in adult, unspecified whether serious comorbidity present Take 1 tablet (50 mg total) by mouth 1 (one) time each day. 30 each 1 4 07/27/19 25 Discontinued Daily-Adelia, with folic acid, 400 mcg tablet Take 1 tablet by mouth 1 (one) time each day. 4 07/02/19 25 Discontinued(Reo mima) Hospital, Clinic, or Other Facility Administered Medication Ordered Dose Route Frequency Start Date End Date Status lidocaine (PF) (XYLOCAINE-MPF) 1 % injection 0.5 mLIndications:Planta r fascial fibromatosis .5 mL inj Once PRN Procedure 07/04/2024 07/04/2024 Ended triamcinolone acetonide (KENALOG-40) 40 mg/mL injection 20 mgIndications:Planta r fascial fibromatosis 20 mg IAtc Once PRN Procedure 07/04/2024 07/04/2024 Ended Active Problems Problem Noted Date Diagnosed Date Acute deep vein thrombosis ( DVT) of calf muscle vein of right lower extremity 05/04/2024 Skin cancer 11/14/2023 Multiple pulmonary nodules 11/14/2023 Overview (04/13/2024): Last Assessment & Plan: Ms. Easley is a 63 year old female, non-smoker never smoker with a family history of lung cancer, who we have been following for waxing and waning ground glass nodules consistent with an inflammatory or infectious etiology. ?? Most recent CT chest done on 02/09/24 is consistent with this pattern of waxing and waning groundglass nodules. Several pulmonary nodules have resolved, several are stable, and there are several new ground glass opacities. There is no mediastinal adenopathy or pleural effusion. ?? Patient is very anxious about these pulmonary nodules and asked if they needed to be biopsied. At this time there are no concerning nodules that would require biopsy. I have a low suspicion for malignancy given her clinical picture and risk of biopsy outweighs the benefit. ?? The patient does have year round environmental allergies which may be related to her waxing and waning nodules. ?? We will order a CT chest to be done in 6 months, July 2024, and will see the patient in the office after. If she continues to have a waxing/waning picture indicating inflammatory process then would be better managed then on by her vibration analyst. Patient will call with any questions or concerns prior to her next appointment. Moderate persistent asthma 12/22/2022 Overview (04/13/2024): - PFTs with restrictive deficit, possible body habitus contributory. Symbicort twice daily with significant improvement. Repeat CT in December 2022 - Cardiac evaluation negative, not felt to be cardiac in nature Pruritus 07/29/2021 Hypoglycemia 06/15/2021 Female cystocele 09/15/2020 Orthostatic hypotension 03/26/2020 Postsurgical dumping syndrome 12/03/2019 Mild cognitive disorder 11/29/2018 Type 2 diabetes mellitus wit hout complication, without long-term current use of insulin 10/17/2018 Depression 10/03/2018 Overview (04/13/2024): F/u behavioral health at [facility] Migraine 11/16/2017 Overview (04/13/2024): Complex migraine, f/u with neuro Dr. 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 10/29/2015 Anxiety 10/29/2015 Diverticulosis of colon 04/03/2015 Colonic polyp 04/03/2015 Overview (04/13/2024): [facility]nsc[facility], [place] 03/10/15, Rpt 5 y HTN (hypertension) 01/30/2015 DVT (deep vein thrombosis) in 01/31/20 Overview (04/13/2024): LLE in 3 months OAC Vitamin D deficiency 10/23/2014 Thrombophlebitis 10/01/2014 Overview (04/13/2024): Recurrent, usually in the legs Seasonal allergies 10/01/2014 Obesity (BMI 30-39.9) 10/01/2014 Overview (04/13/2024): s/p sleeve gastrectomy in JAN 2019 GERD (gastroesophageal reflux disease) 5 Edema 10/01/2014 Overview (04/13/2024): - Cardiac reevaluation in , noncontributory. Improved with compression stockings, and occasional furosemide, low-sodium diet; declined decreasing amlodipine. - Reports w/u cardiac & inflammatory testing neg with previous provider (Dr. Ochoa) no records Other specified health status 10/01/2014 Overview (04/13/2024): Varicose veins Encounters Date Type Department Care Team Description 07/18/2024 10:30 AM EST Office Visit Orthopedic Surgery [facility] [address] [place] [phone] Dewayne Cortez, DPM Plantar fascial fibromatosis (Primary Dx); Arthritis of left ankle; Posterior tibial tendon dysfunction (PTTD) of both lower extremities; Diabetic mononeuropathy simplex ([facility]/HCC) 07/10/2024 Telephone Pulmonolgy [facility] 175 [facility] [address] [place] [phone] Ronda Henry MD TESTING 07/09/2024 1:30 PM EST Office Visit [facility] Hematology Oncology [address] [place] [phone] Alexus Lopes MD Acute deep vein thrombosis (DVT) of calf muscle vein of right lower extremity ([facility]/HCC) 07/04/2024 10:00 AM EST Office Visit Orthopedic Surgery [facility] 250 175 [facility] [address] [place] [phone] Dewayne Cortez DPM Arthritis of left ankle (Primary Dx); Bilateral foot pain; Bilateral ankle pain; Plantar fascial fibromatosis; Arthritis of right ankle; Posterior tibial tendon dysfunction (PTTD) of both lower extremities 06/14/2024 11:30 AM EST Office Visit Internal Medicine - [address] [phone] Francisco Adan NP Paronychia of great toe, right (Primary Dx) 06/14/2024 Telephone Internal Medicine - [address] [phone] Zana Chappell MD Prior Authorization 06/05/2024 Telephone Internal Medicine - [address] [phone] Zana Chappell MD Med Refill 05/31/2024 1:45 PM EST Office Visit Bariatric Surgery [facility] 175 [facility] [address] [place] [phone] Tommie Guy MD Class 2 obesity due to excess calories with body mass index (BMI) of 38.0 to 38.9 in adult, unspecified whether serious comorbidity present (Primary Dx) 05/30/2024 10:15 AM EST Office Visit Orthopedic Surgery [facility] 250 175 [facility] [address] [place] [phone] Dewayne Cortez DPM Arthritis of right ankle (Primary Dx); Arthritis of left ankle; Plantar fascial fibromatosis; Metatarsalgia of both feet; Diabetic mononeuropathy simplex (CMS/HCC); Posterior tibial tendon dysfunction (PTTD) of both lower extremities 05/07/2024 2:30 PM EST Office Visit Orthopedic Surgery [facility] [address] [phone] Kayleen Epperson MD Primary osteoarthritis of both knees (Primary Dx) 05/07/2024 1:00 PM EST Office Visit [facility] [address] [place] [phone] Daniel Ross PA Acute deep vein thrombosis (DVT) of calf muscle vein of right lower extremity (CMS/HCC) (Primary Dx) 05/04/2024 3:37 PM EST - 05/04/2024 5:34 PM EST Emergency [facility] Emergency [address] [place] [phone] Acute deep vein thrombosis (DVT) of calf muscle vein of right lower extremity (CMS/HCC) (Primary Dx); DVT (deep vein thrombosis) in Discharge Disposition: Home or Self Care 05/04/2024 [facility] [address] [place] [phone] Zana Chappell MD [facility] 04/30/2024 2:45 PM EST Office Visit Orthopedic Surgery [facility] [address] [phone] Kayleen Epperson MD Primary osteoarthritis of both knees (Primary Dx) from Last 3 Months Immunizations Name Administration Dates Next Due Influenza Quadravalent, MDCK , 0.5ml, preservative free (Flucelvax) 6mo and older 03/26/2022,03/26/2020 Influenza trivalent, 0.5mL, preservative free (Fluarix; FluLaval; Fluzone) ages 6mo and older (Afluria) 3 years and older 04/05/2024 Pfizer SARS-CoV-2 COVID-19, mRNA, LNP-S, preservative free 04/03/2022,09/16/2021 Pneumococcal polysaccharide 23 valent (Pneumovax 23) 2yo and older 12/05/2018 Td Tetanus diptheria (Tdvax) 7yo and older 12/22 Tdap Tetanus diptheria acell ular pertussis (Boostrix; Adacel) 7yo and older 08/30/2012 Surgical History Surgery Date Site/Laterality Comments OTHER SURGICAL HISTORY 1999 PROCEDURE: [place] TOTAL ABDOMINAL HYSTERECT W/WO RMVL TUBE OVARY; COMMENT: with BSO CHOLECYSTECTOMY 2012 PROCEDURE: HISTORICAL CHOLECYSTECTOMY GASTRIC BYPASS 02/05/2019 PROCEDURE: [place] GASTRIC RSTCV W/BYP W/SM INT RCNSTJ LIMIT ABSRPJ; COMMENT: Dr. Guy; SLEEVE COLONOSCOPY 2020 PROCEDURE: HISTORICAL COLONOSCOPY; COMMENT: polyps, rpt 5yrs Medical History Medical History Date Comments Varicose veins 10/01/2014 DX:Varicose vein s Thrombophlebitis 10/01/2014 DX:Thrombophleb itis; COMMENT: Recurrent, usually in the legs Never had DVT Seasonal allergies 10/01/2014 DX:Seasonal a llergies Morbid obesity with BMI of 4 5.0-49.9, adult ([facility]) 10/01/2014 DX:Morbid obesity with BMI o f 45.0-49.9, adult ([facility]) GERD (gastroesophageal reflux disease) 5 DX:GERD (gastroesophageal reflux disease) Edema 10/01/2014 DX:Edema; COMMEN T: Reports w/u cardiac & inflammatory testing neg with previous provider (Dr. Ochoa) no records Vitamin D deficiency 10/23/2014 DX:Vitamin D deficiency History of gastric ulcer 10/23/2014 DX:Hist ory of gastric ulcer; COMMENT: Years ago; treated H pylori 1998 HTN (hypertension) 01/30/2015 DX:HTN (hyper tension) History of CVA (cerebrovascu lar accident) without residual deficits 07/25/2015 DX:History of CVA (cerebrovascular accident) without residual deficits Demyelinating changes in bra in ([facility]) 10/29/2015 DX: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 ([facility]) Anxiety 10/29/2015 DX:Anxiety Hypothyroidism 10/29/2015 DX:Hypothyroidis m Hyperlipidemia 02/02/2016 DX:Hyperlipidemi a Migraine 11/16/2017 DX:Migraine; COM MENT: Complex migraine, f/u with neuro Farida Panasci Type 2 diabetes mellitus wit hout complication, without long-term current use of insulin ([facility]/HCC) 10/17/2018 DX:Type 2 diabetes mellitus without complication, without long-term current use of insulin ([facility]) Skin cancer DX:Skin cancer Mild intermittent asthma, uncomplicated DX:Mild intermittent asthma, uncomplicated History of stomach ulcers DX:His tory of stomach ulcers Depression DX:Depression Family History Medical History Relation Name Comments Breast cancer Aunt mat 50s maternal; unsu re age Schizophrenia Brother 1 Depression Brother 2 Lung cancer Brother 3 DM. HTN Hypertension Brother 4 Hypertension Brother 5 Multiple sclerosis Daughter 1 Depression Daughter 2 Other: raynaud's Daughter 2 Hypertension Father CVA Tuberculosis Father Hypertension Mother diabetes Breast cancer Mother's side Mat cousin 30s Breast cancer Other mat cousin breast cancer 30's Diabetes Paternal Grandfather Coronary artery disease Sister 1 Diabetes Sister 1 Thyroid disease Sister 1 Mental illness Sister 2 Hypertension Son 1 Colon cancer Neg Hx Ovarian cancer Neg Hx Relation Name Status Comments Aunt mat 50s Brother 1 Alive Brother 2 Alive Brother 3 Brother 4 Alive Brother 5 Alive Daughter 1 Alive Daughter 2 Alive Father (Age 63) Mother Alive Mother's side Mat cousin 30s Alive Other mat cousin cousin Paternal Grandfather Sister 1 Alive Sister 2 Alive Son 1 Alive Son 2 Alive Social History Tobacco Use Types Packs/Day Years [...] file Not on file Not on file Obstetrics History Last Filed Vital Signs Vital Sign Reading Time Taken Comments Blood Pressure 122/79 07/09/2024 1:57 PM EST Pulse 91 07/09/2024 1:57 PM EST Temperature 36.8 ??C (98.2 ??F) 07/09/2024 1:57 PM ES T Respiratory Rate 16 05/07/2024 1:04 PM EST Oxygen Saturation 98% 07/09/2024 1:57 PM EST Inhaled Oxygen Concentration - - Weight 106 kg (233 lb) 07/18/2024 10:53 AM EST Height 167.6 cm (5' 5.98 ) 07/18/2024 10:[address] Body Mass Index 37.63 07/18/2024 10:53 AM EST Plan of Treatment Upcoming Encounters Date Type Department Care Team (Late st Contact Info) Description 07/31/2024 3:00 PM EST Appointment [facility] CT Scan [address] [place] [phone] 08/08/2024 3:15 PM EST Office Visit Thoracic Surgery [facility] [address] [phone] Dewayne Stephens PA [address] [address] 08/20/2024 2:30 PM EST Office Visit Internal Medicine - [facility] [address] [place] [phone] Zana Chappell MD [address] [place] [address] 08/21/2024 10:45 AM EST Office Visit Orthopedic Surgery [facility] [address] [phone] Dewayne Cortez DPRonald [address] [address] 09/06/2024 10:30 AM EDT Office Visit Pulmonolgy [facility] [address] [phone] Ronda Henry MD 175 [facility] 200 [place] [address] 10/02/2024 10:45 AM EDT Office Visit Bariatric Surgery - [place] [address] [place] [phone] Tommie Guy MD [address] [place] [address] [place] [address] 01/28/2025 11:00 AM EDT Appointment Radiology Department [address] [phone] 03/14/2025 10:30 AM EDT Office Visit Vascular Surgery - [place] [address] [place] [phone] Sandhya Eng PA [address] [place] [address] [place] [address] Health Maintenance Due Date Last Done Comments Diabetes: Annual Foot Exam 1969 Diabetes: Annual Retina Eye Exam 1969 RSV Immunization Patients 60+ Years Old (1 - Risk 60-74 years 1-dose series) 2019 Pneumococcal Vaccine: 65+ Years (2 of 2 - PCV) 12/06/2019 12/05/2018 Pneumococcal Vaccine: Pediatrics (0 to 5 Years) and At-Risk Patients (6 to 64 Years) (2 of 2 - PCV) 12/06/2019 12/05/2018 Medicare Annual Wellness Visit 06/05/2022 Osteoporosis Screening (Bone Density Screening) 06/05/2022 Social Influencers of Health Screening 06/05/2022 Diabetes: Annual Urine Albumin-Creatinine Ratio (uACR) 06/12/2022 08/08/2019 COVID-19 Vaccine ( season) 2024 04/03/2022, 09/16/2021, 10/18/2020, Additional history exists Diabetes: Blood Sugar Control Test (HGBA1C) 04/21/2024 10/21/2023, 10/21/2023 Falls Risk Assessment 2024 Diabetes: Annual GFR (Glomerular Filtration Rate) 06/04/2025 06/04/2024, 05/04/2024, 02/20/2024, Additional history exists Hypertension/CHF/CAD Annual BMP Blood Test 06/04/2025 06/04/2024, 05/04/2024, 02/20/2024, Additional history exists Depression Screening 06/08/2025 06/08/2024, 06/28/19 24 Colorectal Cancer Screening: Colonoscopy 08/25/2025 08/25/2020 Breast Cancer Screening 01/18/2026 01/19/20 24, 01/19/2024, 01/14/2023, Additional history exists Cholesterol Screening (Lipid Panel) 10/20/2028 10/21/2023, 10/21/2023 DTaP,Tdap,and Td Vaccines (3 - Td or Tdap) 12/22/2032 12/22/2022, 08/30/2012 Hepatitis C Screening Completed 10/01/2014 Zoster Vaccines Completed 03/11/2023, 01/08/2023 Influenza Vaccine Completed 04/05/2024, , 03/26/2020 HIB Vaccines Aged Out No longer eligi ble based on patient's age to complete this topic HPV Vaccines Aged Out No longer eligi ble based on patient's age to complete this topic Hepatitis A Vaccines Aged Out No long er eligible based on patient's age to complete this topic Hepatitis B Vaccines Aged Out No long er eligible based on patient's age to complete this topic IPV Vaccines Aged Out No longer eligi ble based on patient's age to complete this topic MMR Vaccines Aged Out No longer eligi ble based on patient's age to complete this topic Meningococcal ACWY Vaccine Aged Out N o longer eligible based on patient's age to complete this topic RSV Immunization Patients Under 20 months Aged Out No longer eligible based on patient's age to complete this topic Varicella Vaccines Aged Out No longer eligible based on patient's age to complete this topic Procedures Procedure Name Priority Date/Time Associated Diagnosis Comments XR ANKLE 3+ VIEWS RIGHT Routine 07/04/2024 10:07 AM EST Bilateral ankle pain XR FOOT 3+ VIEWS BILAT Routine 07/04/2024 10:07 AM EST Bilateral foot pain INJECTION TENDON OR LIGAMENT Routine 07/04/2024 10:00 AM EST Plantar fascial fibromatosis ARSENIC, BLOOD Routine 06/04/2024 1:02 PM EST Polyneuropathy CBC WITH AUTO DIFFERENTIAL Routine 06/04/2024 1:02 PM EST Polyneuropathy VITAMIN B12 Routine 06/04/2024 1:02 PM EST Polyneuropathy FOLATE Routine 06/04/2024 1:02 PM EST Polyneuropathy THYROID STIMULATING HORMONE WITH REFLEX TO FREE T4 AND FREE T3 Routine 06/04/2024 1:02 PM EST Polyneuropathy SEDIMENTATION RATE Routine 06/04/2024 1: 02 PM EST Polyneuropathy ROYCE IFA WITH TITER AND PATTERN Routine 06/04/2024 1:02 PM EST Polyneuropathy COMPREHENSIVE METABOLIC PANEL Routine 06/04/2024 1:02 PM EST Polyneuropathy CBC AND DIFFERENTIAL Routine 06/04/2024 1:02 PM EST Polyneuropathy LEAD Routine 06/04/2024 1:02 PM EST Polyneuropathy TREPONEMA PALLIDUM ANTIBODY WITH REFLEX TO RPR AND PARTICLE AGGLUTINATION Routine 06/04/2024 1:02 PM EST Polyneuropathy BORRELIA BURGDORFERI ANTIBODY Routine 06/04/2024 1:02 PM EST Polyneuropathy MERCURY, BLOOD Routine 06/04/2024 1:02 PM EST Polyneuropathy INJECTION TENDON OR LIGAMENT Routine 05/30/2024 10:15 AM EST Arthritis of left ankle Plantar fascial fibromatosis INJECTION TENDON OR LIGAMENT Routine 05/30/2024 10:15 AM EST Arthritis of left ankle Plantar fascial fibromatosis [place] ARTHROCENTESIS/ASPIRA TION/INJECTION MAJOR JOINT/BURSA W/O U/S GUIDANCE Routine 05/07/2024 2:30 PM EST Primary osteoarthritis of both knees VAS US DUPLEX LOWER EXT VENOUS RIGHT Routine 05/04/2024 4:49 PM EST DVT (deep vein thrombosis) in CBC WITH AUTO DIFFERENTIAL STAT 05/04/2024 2:43 PM EST CBC AND DIFFERENTIAL STAT 05/04/2024 2:43 PM EST BASIC METABOLIC PANEL STAT 05/04/2024 2:43 PM EST [place] ARTHROCENTESIS/ASPIRA TION/INJECTION MAJOR JOINT/BURSA W/O U/S GUIDANCE Routine 04/30/2024 2:45 PM EST Primary osteoarthritis of both knees SCREENING MAMMOGRAPHY BI 2-VIEW BREAST INC CAD Routine 01/19/2024 11:08 AM EDT Encounter for screening mammogram for malignant neoplasm of breast HEMOGLOBIN A1C Routine 10/21/2023 LIPID PANEL Routine 10/21/2023 HM DEPRESSION SCREENING Routine 06/28/2023 HM COLONOSCOPY Routine 08/25/2020 HM URINE ALBUMIN CREATININE RATIO Routine 08/08/2019 HM HEPATITIS C SCREENING Routine 10/01/2014 from Last 3 Months or Most Recently Relevant to Health Maintenance Results * XR Ankle 3+ Views Right [...] tendon Dewayne Cortez DPM IN CLINIC/BEDSIDE ORDERABLES * Treponema pallidum antibody with reflex to RPR and particle agglutination (06/04/2024 1:02 PM EST) T. Pallidum Antibodies Negative Negative LAB CHEMISTRY METHOD 06/04/2024 5:45 PM EST [facility] Blood Venous blood specimen / Unknown Venipuncture / Unknown 06/04/2024 1:02 PM EST 06/04/2024 1:02 PM EST Laly Stewart MD LAB BLOOD ORDERABLES [facility] [address] [place] [address], * Thyroid stimulating hormone with reflex to free t4 and free t3 (06/04/2024 1:02 PM EST) TSH 3.60 0.40 - 4.00 mcIU/mL LAB CHEMISTRY METHOD 06/04/2024 5:34 PM EST [facility] Blood Venous blood specimen / Unknown Venipuncture / Unknown 06/04/2024 1:02 PM EST 06/04/2024 1:02 PM EST Laly Stewart MD LAB BLOOD ORDERABLES [facility] [address] [place] [address], * Arsenic, blood (06/04/2024 1:02 PM EST) Pathologist [facility] Arsenic, Blood <3 <23 mcg/L 06/13/2024 4:37 PM EST [facility] Comment: (Note) Whole Blood Arsenic level >100 mcg/L is indicative of acute/chronic exposure. Urine is usually the best specimen for the analysis of arsenic in body fluids. Blood levels tend to be low even when urine concentrations are high. This test was developed and its analytical performance characteristics have been determined by [facility]. It has not been cleared or approved by the FDA. This assay has been validated pursuant to the CLIA regulations and is used for clinical purposes. [facility] [address] [address],[address] [facility] [address] Mark Johnston MD, PhD Test Performed at: [facility] [address] [facility] [address], [address] [place], [place] ??[phone] ? Dre Johnston MD, PhD Blood Venous blood specimen / Unknown Venipuncture / Unknown 06/04/2024 1:02 PM EST 06/04/2024 1:02 PM EST Laly Stewart MD LAB BLOOD ORDERABLES [facility] [address] [place] [address] * ROYCE IFA with titer and pattern (06/04/2024 1:02 PM EST) [facility] ROYCE Negative Negative 06/06/2024 2:16 PM [facility] Blood Venous blood specimen / Unknown Venipuncture / Unknown 06/04/2024 1:02 PM EST 06/04/2024 1:02 PM EST Laly Stewart MD LAB BLOOD ORDERABLES [facility] [address] [place] [address], * (ABNORMAL) CBC auto differential (06/04/2024 1:02 PM EST) Only the most recent of2 resultswithin the time period is included. [facility] WBC 9.3 4.8 - 10.8 K/mcL LAB HEMETOLOGY METHOD 06/04/2024 2:34 PM [facility] RBC 4.50 3.80 - 4.80 M/mcL LAB HEMETOLOGY METHOD 06/04/2024 2:34 PM [facility] Hemoglobin 13.5 11.5 - 16.0 g/dL LAB HEMETOLOGY METHOD 06/04/2024 2:34 PM [facility] Hematocrit 43.1 35.0 - 47.0 % LAB HEMETOLOGY METHOD 06/04/2024 2:34 PM [facility] MCV 95.4 79.0 - 98.0 FL LAB HEMETOLOGY METHOD 06/04/2024 2:34 PM [facility] MCH 29.9 27.0 - 32.0 pcg LAB HEMETOLOGY METHOD 06/04/2024 2:34 PM [facility] MCHC 31.3(L) 32.0 - 37.0 g/dL LAB HEMETOLOGY METHOD 06/04/2024 2:34 PM [facility] RDW 14.3 11.0 - 15.0 % LAB HEMETOLOGY METHOD 06/04/2024 2:34 PM [facility] Platelets 356 130 - 400 K/mcL LAB HEMETOLOGY METHOD 06/04/2024 2:34 PM [facility] MPV 10.8 7.0 - 11.0 FL LAB HEMETOLOGY METHOD 06/04/2024 2:34 PM [facility] NRBC 0.0 <1.0 % LAB HEMETOLOGY METHOD 06/04/2024 2:34 PM [facility] NRBC Absolute 0.00 <0.10 K/mcL LAB HEMETOLOGY METHOD 06/04/2024 2:34 PM [facility] Neutrophils Relative 64.9 % LAB HEMETOLOGY METHOD 06/04/2024 2:34 PM [facility] Lymphocytes Relative 26.1 % LAB HEMETOLOGY METHOD 06/04/2024 2:34 PM [facility] Monocytes Relative 6.6 % LAB HEMETOLOGY METHOD 06/04/2024 2:34 PM [facility] Eosinophils Relative 1.4 % LAB HEMETOLOGY METHOD 06/04/2024 2:34 PM [facility] Basophils Relative 0.6 % LAB HEMETOLOGY METHOD 06/04/2024 2:34 PM [facility] Immature Granulocytes Relative 0.4 % LAB HEMETOLOGY METHOD 06/04/2024 2:34 PM [facility] Neutrophils Absolute 6.03 1.50 - 7.00 K/mcL LAB HEMETOLOGY METHOD 06/04/2024 2:34 PM [facility] Lymphocytes Absolute 2.43 1.00 - 5.00 K/mcL LAB HEMETOLOGY METHOD 06/04/2024 2:34 PM [facility] Monocytes Absolute 0.61 0.20 - 1.00 K/mcL LAB HEMETOLOGY METHOD 06/04/2024 2:34 PM EST [facility] Eosinophils Absolute 0.13 0.00 - 0.50 K/mcL LAB HEMETOLOGY METHOD 06/04/2024 2:34 PM EST [facility] Basophils Absolute 0.06 0.00 - 0.20 K/mcL LAB HEMETOLOGY METHOD 06/04/2024 2:34 PM EST [facility] Immature Granulocytes Absolute 0.04(H) 0.00 - 0.03 K/mcL LAB HEMETOLOGY METHOD 06/04/2024 2:34 PM EST [facility] Blood Venous blood specimen / Unknown Venipuncture / Unknown 06/04/2024 1:02 PM EST 06/04/2024 1:02 PM EST Laly Stewart MD LAB BLOOD ORDERABLES [facility] [address] [place] [address], * Mercury, blood (06/04/2024 1:02 PM EST) [facility] Mercury Whole Blood <5 <11 mcg/L 06/12/2024 10:41 PM EST [facility] Comment: (Note) This test was developed and its analytical performance characteristics have been determined by [facility]. It has not been cleared or approved by the FDA. This assay has been validated pursuant to the CLIA regulations and is used for clinical purposes. [facility] [id number] [address],[address] [facility] [address] Mark Johnston MD, PhD Test Performed at: [facility] [address] [place] [address], [address] [place] [address] ??[phone] ? Dre Johnston MD, PhD Blood Venous blood specimen / Unknown Venipuncture / Unknown 06/04/2024 1:02 PM EST 06/04/2024 1:02 PM EST Laly Stewart MD LAB BLOOD ORDERABLES [facility] [address] [place] [address] * Borrelia burgdorferi antibody (06/04/2024 1:02 PM EST) [facility] Lyme Ab Negative Negative LAB CHEMISTRY METHOD 06/05/2024 10:13 AM EST [facility] Comment: No laboratory evidence of infection with B. burgdorferi (Lyme disease). Negative results may occur in patients recently infected (<=14 days) with B. burgdorferi. ??If recent infection is suspected, repeat testing on a new sample collected in 7-14 days is recommended. Blood Venous blood specimen / Unknown Venipuncture / Unknown 06/04/2024 1:02 PM EST 06/04/2024 1:02 PM EST Laly Stewart MD LAB BLOOD ORDERABLES Performing Organization Address [facility] Co de Phone Number [facility] [address] [place] [address], * (ABNORMAL) Sedimentation rate (06/04/2024 1:02 PM EST) [facility] Sed Rate 33(H) 0 - 30 mm/hr LAB HEMETOLOGY METHOD 06/04/2024 2:44 PM EST [facility] Blood Venous blood specimen / Unknown Venipuncture / Unknown 06/04/2024 1:02 PM EST 06/04/2024 1:02 PM EST Laly Stewart MD LAB BLOOD ORDERABLES Performing Organization Address City/[facility]/ZIP Co de Phone Number [facility] [address] [place] [address], [place] [phone] * Lead (06/04/2024 1:02 PM EST) [facility] Lead 0.5 <5.0 ug/dL 06/07/2024 9:51 AM EST [facility] Comment: CDC recommendations for clinical follow up and lead level monitoring may vary depending on initial measured lead level and the patient's age. ??Local and state health departments also may have different recommendations for monitoring and clinical follow up. ??Please consult your local or state health department, or the CDC's website regarding monitoring of lead levels in adults: https://www.cdc.gov/niosh/topics/ying/pdfs/ Methodology used in analysis is atomic absorption. Elevated results may be due to skin or collection-related contamination, including the use of a noncertified lead-free tube,or transfer of sample into a noncertified lead-free tube. If contamination concerns exist due to elevated levels of blood lead, confirmation with a venous specimen collected in a certified lead-free tube is recommended. The Blood Lead test was developed and the performance characteristics determined by [facility]. It has not been cleared or approved by the FDA. The laboratory is regulated under CLIA as qualified to perform high-complexity testing. This test is used for patient testing purposes. It should not be regarded as investigational or for research. Test performed at [facility], [address] , [place], [place] ??[address] ? [phone] Miesha Ugarte MD, PhD - Retail Experience Specialist Blood Venous blood specimen / Unknown Venipuncture / Unknown 06/04/2024 1:02 PM EST 06/04/2024 1:02 PM EST Laly Stewart MD LAB BLOOD ORDERABLES [facility] [address] [place] [address] * (ABNORMAL) Folate (06/04/2024 1:02 PM EST) Pathologist [facility] Folate >20.0(H) 2.8 - 17.0 ng/ml LAB CHEMISTRY METHOD 06/04/2024 5:53 PM EST [facility] Blood Venous blood specimen / Unknown Venipuncture / Unknown 06/04/2024 1:02 PM EST 06/04/2024 1:02 PM EST Laly Stewart MD LAB BLOOD ORDERABLES Performing Organization Address City/[facility]/ZIP Co de Phone Number [facility] [address] [place] [address], [place] [phone] * Vitamin B12 (06/04/2024 1:02 PM EST) [facility] Vitamin B-12 511 250 - 900 pcg/mL LAB CHEMISTRY METHOD 06/04/2024 5:53 PM [facility] Blood Venous blood specimen / Unknown Venipuncture / Unknown 06/04/2024 1:02 PM EST 06/04/2024 1:02 PM EST aLly Stewart MD LAB BLOOD ORDERABLES Performing Organization Address [facility]/ZIP Co de Phone Number [facility] [address] [place] [address], [place] [phone] * Comprehensive metabolic panel (06/04/2024 1:02 PM EST) [facility] Sodium 140 133 - 145 mmol/L LAB CHEMISTRY METHOD 06/04/2024 5:29 PM [facility] Potassium 4.1 3.5 - 5.5 mmol/L LAB CHEMISTRY METHOD 06/04/2024 5:29 PM [facility] Chloride 107 96 - 110 mmol/L LAB CHEMISTRY METHOD 06/04/2024 5:29 PM [facility] CO2 25 21 - 32 mmol/L LAB CHEMISTRY METHOD 06/04/2024 5:29 PM [facility] Anion Gap 8 3 - 11 LAB CHEMISTRY METHOD 06/04/2024 5:29 PM [facility] Glucose 99 70 - 100 mg/dL LAB CHEMISTRY METHOD 06/04/2024 5:29 PM [facility] BUN 23 5 - 25 mg/dL LAB CHEMISTRY METHOD 06/04/2024 5:29 PM [facility] Creatinine 1.03 0.50 - 1.10 mg/dL LAB CHEMISTRY METHOD 06/04/2024 5:29 PM [facility] eGFR 61 >=60 mL/min/1. 73m2 LAB CHEMISTRY METHOD 06/04/2024 5:29 PM [facility] Comment:Calculation based on the??Chronic Kidney Disease Epidemiology Collaboration (CKD-EPI) equation refit??without adjustment for race. BUN/Creatinine Ratio 22.3 LAB CHEMISTRY METHOD 06/04/2024 5:29 PM [facility] Calcium 9.5 8.5 - 10.5 mg/dL LAB CHEMISTRY METHOD 06/04/2024 5:29 PM [facility] AST (SGOT) 17 10 - 42 unit/L LAB CHEMISTRY METHOD 06/04/2024 5:29 PM [facility] ALT (SGPT) 30 10 - 60 unit/L LAB CHEMISTRY METHOD 06/04/2024 5:29 PM [facility] Alkaline Phosphatase 72 42 - 121 unit/L LAB CHEMISTRY METHOD 06/04/2024 5:29 PM [facility] Total Protein 7.4 6.0 - 8.0 g/dL LAB CHEMISTRY METHOD 06/04/2024 5:29 PM [facility] Albumin 3.8 3.2 - 5.0 g/dL LAB CHEMISTRY METHOD 06/04/2024 5:29 PM [facility] Total Bilirubin 0.7 0.0 - 1.4 mg/dL LAB CHEMISTRY METHOD 06/04/2024 5:29 PM [facility] Blood Venous blood specimen / Unknown Venipuncture / Unknown 06/04/2024 1:02 PM EST 06/04/2024 1:02 PM EST Laly Stewart MD LAB BLOOD ORDERABLES [facility] [address] [place] [address], * Injection tendon or ligament (05/30/2024 10:15 AM EST) Dewayne Luong DPM - 05/30/2024 10:15 AM EST Dewayne Cortez DPM ? 05/30/2024 12:46 PM Injection tendon or ligament Indications: pain Details: 25 G needle Medications: 0.5 mL lidocaine (PF) 1 %; 20 mg triamcinolone acetonide 40 mg/mL Informed Consent: ??Site: ??Foot ligament tendon Dewayne Cortez DPM IN CLINIC/BEDSIDE ORDERABLES * Injection tendon or ligament (05/30/2024 10:15 AM EST) Dewayne Luong DPM - 05/30/2024 10:15 AM EST Dewayne Cortez DPM ? 05/30/2024 12:46 PM Injection tendon or ligament Indications: pain Details: 25 G needle Medications: 0.5 mL lidocaine (PF) 1 %; 20 mg triamcinolone acetonide 40 mg/mL Informed Consent: ??Site: ??Foot ligament tendon Dewayne Cortez DPM IN CLINIC/BEDSIDE ORDERABLES * [place] ARTHROCENTESIS/ASPIRATION/INJECTION MAJOR JOINT/BURSA W/O U/S GUIDANCE (05/07/2024 2:30 PM EST) Narrative Kayleen Epperson MD - 05/07/2024 2:30 PM EST Kayleen Epperson MD ? 05/07/2024 ??3:03 PM L Inj/Asp: bilateral knee Indications: pain Details: 22 G needle, anterolateral approach Medications (Right): 10 mg sodium hyaluronate (viscosup) 10 mg/mL(mw 2.4 -3.6 million) Medications (Left): 10 mg sodium hyaluronate (viscosup) 10 mg/mL(mw 2.4 -3.6 million) Informed Consent: ??Laterality: ??Bilateral ??Relevant images/test results available and reviewed: yes ?Health status cleared: ??Yes ??Procedure/treatment, purpose, treatment alternatives, risks/potential complications and benefits explained: yes ?Risk/complications/benefits details: ??Risks, including bleeding ?? infection, allergic reaction, neurovascular injury were thoroughly discussed with the patient. The patient understood the risks and gave verbal consent for the procedure ??Patient questions answered: yes ?Patient agrees, verbalizes understanding, and wants to proceed: yes ?Consent given by: ??Patient ??Informed consent discussion completed by Physician/YOBANI with patient: ?? Verbal ??Pre-procedure timeout performed: yes ?? Kayleen Epperson MD IN CLINIC/BEDSIDE OR DERABLES * Vascular US duplex lower extremity venous right (05/04/2024 4:49 PM EST) Anatomical Region Laterality Modality Vascular, Abdomen Ultrasound 05/04/2024 5:21 PM EST Addenda Addendum by Tara Faust MD on 05/04/2024 5:23 PM EST ADDENDUM: This report was discussed with ALEX PIERSON MD on May 04, 2024 17:23:00 EST. This document has been electronically signed by: Vikki Johnson on 05/04/2024 17:23:47 Impressions 05/04/2024 5:21 PM EST 1. Right lower extremity DVT within the gastrocnemius vein. 2. Superficial thrombophlebitis. This document has been electronically signed by: Tara Faust MD on 05/04/2024 17:21:13 Narrative 05/04/2024 5:21 PM EST Venous duplex ultrasound right lower extremity Comparison: None Findings: There is near occlusive thrombus seen within the gastrocnemius vein. Thrombosed venous varicosities within the lateral calf. The visualized deep veins are otherwise fully compressible with normal Doppler color flow and spectral tracings. No popliteal cyst. Procedure Note Tara Faust MD - 05/04/2024 Venous duplex ultrasound right lower extremity Comparison: None Findings: There is near occlusive thrombus seen within the gastrocnemius vein. Thrombosed venous varicosities within the lateral calf. The visualized deep veins are otherwise fully compressible with normal Doppler colorflow and spectral tracings. No popliteal cyst. IMPRESSION: 1. Right lower extremity DVT within the gastrocnemius vein. 2. Superficial thrombophlebitis. This document has been electronically signed by: Tara Faust MD on 05/04/2024 17:21:13 Senthil FUNG CV VASCULAR PROCEDUR ES * (ABNORMAL) Basic metabolic panel (05/04/2024 2:43 PM EST) Sodium 139 133 - 145 mmol/L LAB CHEMISTRY METHOD 05/04/2024 3:16 PM [facility] Potassium 4.3 3.5 - 5.5 mmol/L LAB CHEMISTRY METHOD 05/04/2024 3:16 PM [facility] Chloride 108 96 - 110 mmol/L LAB CHEMISTRY METHOD 05/04/2024 3:16 PM [facility] CO2 26 21 - 32 mmol/L LAB CHEMISTRY METHOD 05/04/2024 3:16 PM [facility] Anion Gap 5 3 - 11 LAB CHEMISTRY METHOD 05/04/2024 3:16 PM [facility] Glucose 125(H) 70 - 100 mg/dL LAB CHEMISTRY METHOD 05/04/2024 3:16 PM [facility] BUN 23 5 - 25 mg/dL LAB CHEMISTRY METHOD 05/04/2024 3:16 PM [facility] Creatinine 1.05 0.50 - 1.10 mg/dL LAB CHEMISTRY METHOD 05/04/2024 3:16 PM [facility] eGFR 59(L) >=60 mL/min/1. 73m2 LAB CHEMISTRY METHOD 05/04/2024 3:16 PM [facility] Comment:Calculation based on the??Chronic Kidney Disease Epidemiology Collaboration (CKD-EPI) equation refit??without adjustment for race. BUN/Creatinine Ratio 21.9 LAB CHEMISTRY METHOD 05/04/2024 3:16 PM [facility] Calcium 9.7 8.5 - 10.5 mg/dL LAB CHEMISTRY METHOD 05/04/2024 3:16 PM EST [facility] Blood Venous blood specimen / Unknown Venipuncture / Unknown 05/04/2024 2:43 PM EST 05/04/2024 2:45 PM EST Og Avilez MD LAB BLOOD ORDERABLE [facility] [address] [place] [address], * [place] ARTHROCENTESIS/ASPIRATION/INJECTION MAJOR JOINT/BURSA W/O U/S GUIDANCE (04/30/2024 2:45 PM EST) Narrative Kayleen Epperson MD - 04/30/2024 2:45 PM EST Kayleen Epperson MD ? 04/30/2024 ??5:25 PM L Inj/Asp: bilateral knee Details: 22 G needle, anterolateral approach Medications (Right): 10 mg sodium hyaluronate (viscosup) 10 mg/mL(mw 2.4 -3.6 million) Medications (Left): 10 mg sodium hyaluronate (viscosup) 10 mg/mL(mw 2.4 -3.6 million) Informed Consent: ??Site: ??Knee ??Laterality: ??Bilateral ??Relevant images/test results available and reviewed: yes ?Health status cleared: ??Yes ??Procedure/treatment, purpose, treatment alternatives, risks/potential complications and benefits explained: yes ?Patient questions answered: yes ?Patient agrees, verbalizes understanding, and wants to proceed: yes ?Consent given by: ??Patient ??Informed consent discussion completed by Physician/YOBANI with patient: ?? Verbal ??Pre-procedure timeout performed: yes ?? Kayleen Epperson MD IN CLINIC/BEDSIDE OR DERABLES * SCREENING MAMMOGRAPHY BI 2-VIEW BREAST INC CAD (01/19/2024 11:08 AM EDT) Anatomical Region Laterality Modality Radiographic Kathrine ging 01/14/2023 10:4 0 AM EDT Narrative 01/19/2024 5:35 PM EDT This is a summary report. The complete report is available in the patient's medical record. If you cannot access the medical record, please contact the sending organization for a detailed fax or copy. BILATERAL 3D DIGITAL SCREENING MAMMOGRAM History: Routine screening. ??No current breast complaints. ??Family history of breast cancer in aunt Comparison: Multiple priors dating back to 01/08/2020 Technique: Bilateral full-field digital 3D mammography was performed using standard CC and MLO projections, right cleavage view CAD was used to evaluate this mammogram. Findings: Density: ??There are scattered areas of fibroglandular density-B RIGHT: No suspicious masses, groups of microcalcification or areas of architectural distortion identified. Stable typically benign parenchymal asymmetries LEFT: No suspicious masses, groups of microcalcifications or areas of architectural distortion identified. Stable typically benign parenchymal asymmetries IMPRESSION: : 1. ??No mammographic evidence of malignancy. BI-RADS Category 2 benign findings Recommendation: Routine annual screening mammography is recommended Procedure Note Nick Singh MD - 04/11/2024 This is a summary report. The complete report is available in thepatient's medical record. If you cannot access the medical record, pleasecontact the sending organization for a detailed fax or copy. BILATERAL 3D DIGITAL SCREENING MAMMOGRAM History: Routine screening. No current breast complaints. Family historyof breast cancer in aunt Comparison: Multiple priors dating back to 01/08/2020 Technique: Bilateral full-field digital 3D mammography was performed usingstandard CC and MLO projections, right cleavage view CAD was used to evaluate this mammogram. Findings: Density: There are scattered areas of fibroglandular density-B RIGHT: No suspicious masses, groups of microcalcification or areas ofarchitectural distortion identified. Stable typically benign parenchymalasymmetries LEFT: No suspicious masses, groups of microcalcifications or areas ofarchitectural distortion identified. Stable typically benign parenchymalasymmetries IMPRESSION: : 1. No mammographic evidence of malignancy. BI-RADS Category 2 benign findings Recommendation: Routine annual screening mammography is recommended Zana Chappell MD IMG XR PROCEDURES * Hemoglobin A1c (10/21/2023) Hemoglobin A1C 5.3 6.5 % Blood Venous blood specimen / Unknown Historical Provider LAB BLOOD ORDERAB LES * (ABNORMAL) Lipid panel (10/21/2023) Pathologist [facility] LDL/HDL Ratio 3 0 - 4 Triglycerides 64 0 - 150 mg/dL Cholesterol 183 0 - 200 mg/dL HDL 68 40 mg/dL LDL Cholesterol 103(A) 0 - 100 mg/dL Blood Venous blood specimen / Unknown Historical Provider LAB BLOOD ORDERAB LES * Depression Screening (06/28/2023) Pathologist [facility] Depression Screening Abstracted Historical Provider [facility] BellyANC E * Colonoscopy (08/25/2020) Pathologist [facility] Colonoscopy Abstracted, No interpretation Anatomical Region Laterality Modality Other Historical Provider [facility] * Urine Albumin Creatinine Ratio (08/08/2019) Pathologist [facility] Urine Albumin Creatinine Ratio Abstracted Historical Provider [facility] * Hepatitis C Screening (10/01/2014) Pathologist [facility] Hepatitis C Screening Abstracted Historical Provider [facility] from Last 3 Months or Most Recently Relevant to Health Maintenance Care Teams Laminating Machine Offbearer Relationship Specialty Start Date End Date Zana Chappell MD [address] [place] [id number] PCP - General Internal Medicine 01/03/19
--- OUTSIDE RECORDS SUMMARY | 2024-07-30 10:33 | XMS_ITS | Encounter Summary ---
Author Organization [facility] Address [address] [place] [address] Care Team Providers Care Supervisor Sanding Name Role Phone Zana Chappell MD Primary Care Provider [phone] Reason for Visit * Reason Comments Consult * Consultation (Routine) - Closed Specialty Diagnoses / Procedures Referred By Contact Referred To Contact Hematology / Hematology and Oncology Diagnoses Acute deep vein thrombosis (DVT) of calf muscle vein of right lower extremity (CMS/HCC) Daniel Ross PA [address] [place] [address] [facility] Hematology Oncology [address] [place] [address] Referral ID Status Reason Start Date Expiration Date V isits Requested Visits Authorized [id number] Closed Specialty Services Required 05/07/2024 05/07/2025 1 1 Encounter Details Date Type Department Care Team (Late st Contact Info) Description 07/09/2024 1:30 PM EST Office Visit [facility] Hematology Oncology [address] [place] [address] Alexus Lopes MD [address] [place], [place] [id number] Acute deep vein thrombosis (DVT) of calf muscle vein of right lower extremity (CMS/HCC) Social History Tobacco Use Types Packs/Day [...] 07/09/2024 1:57 PM ES T Respiratory Rate - - Oxygen Saturation 98% 07/09/2024 1:57 PM EST Inhaled Oxygen Concentration - - Weight 106 kg (233 lb) 07/09/2024 1:57 PM EST Height 167.6 cm (5' 6 ) 07/09/2024 1:57 PM EST Body Mass Index 37.61 07/09/2024 1:57 PM EST documented in this encounter Progress Notes * Alexus Lopes MD - 07/09/2024 1:30 PM EST ONC CANCER INITIAL VISIT Dear Zana, Thank you very much for referring this patient for consultation. HPI: Patient is a very pleasant 63-year-old female, who had 2 episodes of provoked venous thrombosis, initially she had venous thrombosis during in 1983, after that she never had a blood clot in her life until couple months ago when she was very sedentary and basically immobile because of significant arthritic/feet pain (plantar fasciitis), patient found to have superficial thrombosis phlebitis and gastrinomas vein thrombosis, patient has been on anticoagulation for last 2-1/2 months, patient referred to me for further hematological evaluation and recommendation regarding anticoagulation ROS: Basically patient has been feeling well No anorexia or weight loss No chest pain palpitation or shortness of breath No significant GI/ symptom Her main complaint is her feet discomfort because of plantar fasciitis, she closely followed by PAST MEDICAL HISTORY: Patient Active Problem List Diagnosis Date Noted Acute deep vein thrombosis (DVT) of calf muscle vein of right lower extremity (CMS/HCC) 05/04/2024 Skin cancer 11/14/2023 Multiple pulmonary nodules 11/14/2023 Moderate persistent asthma 12/22/2022 Pruritus 07/29/2021 Hypoglycemia 06/15/2021 Female cystocele 09/15/2020 Orthostatic hypotension 03/26/2020 Postsurgical dumping syndrome 12/03/2019 Mild cognitive disorder 11/29/2018 Type 2 diabetes mellitus without complication, without long-term current use of insulin ([facility]) 10/17/2018 Depression 10/03/2018 Migraine 11/16/2017 Hyperlipidemia 02/02/2016 Hypothyroidism 10/29/2015 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 ([facility]) 10/29/2015 Anxiety 10/29/2015 Diverticulosis of colon 04/03/2015 Colonic polyp 04/03/2015 HTN (hypertension) 01/30/2015 DVT (deep vein thrombosis) in 01/30/2015 Vitamin D deficiency 10/23/2014 Thrombophlebitis 10/01/2014 Seasonal allergies 10/01/2014 Obesity (BMI 30-39.9) 10/01/2014 GERD (gastroesophageal reflux disease) 10/01/2014 Edema 10/01/2014 Other specified health status 10/01/2014 PAST SURGICAL HISTORY: Past Surgical History: Procedure Laterality Date CHOLECYSTECTOMY 2012 PROCEDURE: HISTORICAL CHOLECYSTECTOMY COLONOSCOPY 2020 PROCEDURE: HISTORICAL COLONOSCOPY; COMMENT: polyps, rpt 5yrs GASTRIC BYPASS 02/05/2019 PROCEDURE: MD GASTRIC RSTCV W/BYP W/SM INT RCNSTJ LIMIT ABSRPJ; COMMENT: Dr. Guy; SLEEVE OTHER SURGICAL HISTORY 1999 PROCEDURE: MD TOTAL ABDOMINAL HYSTERECT W/WO RMVL TUBE OVARY; COMMENT: with BSO SOCIAL HISTORY: She never smoked She denies alcohol use and abuse She is FAMILY HISTORY: No family history of clotting disorder MEDICATIONS: Current Outpatient Medications: amLODIPine (NORVASC) 5 mg tablet, Take 2 Tablets by mouth daily., Disp: , Rfl: apixaban (Eliquis) 5 mg tablet, Take 1 tablet (5 mg total) by mouth 2 (two) times a day., Disp: 180tablet, Rfl: 0 blood sugar diagnostic (FreeStyle Lite Strips) test strip, Use to test blood sugar once daily for hypoglycemia Dx: e11.9, Disp: , Rfl: blood-glucose meter kit, Check blood sugar daily, Disp: , Rfl: budesonide-formoteroL (SYMBICORT) 160-4.5 mcg/actuation inhaler, Inhale 2 Puffs into the lungs 2 times daily. 1 inhaler and 11 refills, Disp: , Rfl: cetirizine (ZyrTEC) 10 mg tablet, Take 1 Tablet by mouth daily., Disp: , Rfl: cholecalciferol (VITAMIN D-3) 50 mcg (2,000 unit) tablet, Take 1 tablet by mouth once daily, Disp: , Rfl: Daily-Adelia, with folic acid, 400 mcg tablet, Take 1 tablet by mouth 1 (one) time each day., Disp: 90 tablet, Rfl: 0 escitalopram (LEXAPRO) 20 mg tablet, Take 20 mg by mouth daily., Disp: , Rfl: FA/mv,Ca,iron,min/lycopene/lut (MULTIVITAL ORAL), Take 1 Tablet by mouth daily., Disp: , Rfl: famotidine (PEPCID) 20 mg tablet, Take 1 Tablet by mouth 2 times daily., Disp: , Rfl: fluticasone propionate (FLONASE) 50 mcg/actuation nasal spray, Use 1 spray(s) in each nostril once daily Strength: 50 MCG/ACT, Disp: , Rfl: FREESTYLE LANCETS MISC, Inject 1 Strip into the skin daily. Use to check BS as needed for hypoglycemia, Disp: , Rfl: furosemide (LASIX) 20 mg tablet, TAKE 1 TABLET BY MOUTH ONCE DAILY NEEDED FOR EDEMA, Disp: , Rfl: glucagon (Baqsimi) 3 mg/actuation nasal spray, 1 Units by Nasal route as needed (Hypoglycemia)., Disp: , Rfl: levothyroxine (SYNTHROID, LEVOTHROID) 88 mcg tablet, Take 1 tablet by mouth once daily, Disp: , Rfl: nitroglycerin (NITROSTAT) 0.4 mg SL tablet, DISSOLVE ONE TABLET UNDER THE TONGUE EVERY 5 MINUTES ASNEEDED FOR CHEST PAIN. DO NOT EXCEED A TOTAL OF 3 DOSES IN 15 MINUTES, Disp: 25 tablet, Rfl: 2 pantoprazole (PROTONIX) 40 mg EC tablet, Take 1 tablet (40 mg total) by mouth 1 (one) time each day. Do not crush, chew, or split., Disp: 90 tablet, Rfl: 1 simvastatin (ZOCOR) 5 mg tablet, Take 1 Tablet by mouth at bedtime., Disp: , Rfl: SUMAtriptan (IMITREX) 100 mg tablet, Take 1 Tab by mouth daily as needed for Migraine. May repeat dose once after 2 hours, if needed., Disp: , Rfl: topiramate (TOPAMAX) 50 mg tablet, Take 1 tablet (50 mg total) by mouth 1 (one) time each day., Disp: 30 each, Rfl: 1 zolpidem (AMBIEN) 10 mg tablet, Take 1 tablet by mouth at bedtime as needed., Disp: , Rfl: phentermine 15 mg capsule, Take 1 capsule (15 mg total) by mouth 2 (two) times a day. Max Daily Amount: 30 mg, Disp: 60 each, Rfl: 0 Allergies Allergen Reactions Atorvastatin Other Reaction(s): OTHER Muscle cramps Atorvastatin Calcium Other Seasonal Allergies Trazodone Swelling PHYSICAL EXAM: Visit Vitals BP 122/79 (BP Location: Left arm, Patient Position: Sitting, BP Cuff Size: Large adult) Pulse 91 Temp 36.8 ??C (98.2 ??F) (Temporal) Ht 1.676 m (66 ) Wt 106 kg (233 lb) SpO2 98% BMI 37.61 kg/m?? OB Status Postmenopausal Smoking Status Never BSA 2.14 m?? ECOG 0-1 APPEARANCE: Alert and oriented in no acute distress EYES: nonicteric sclera pink conjunctiva ORAL CAVITY: No erythema or exudates NECK: Neck supple, no cervical and supraclavicular adenopathy, HEART: normal S1 and S2 LUNG: clear to auscultation bilaterally LYMPH NODES: No palpable superficial adenopathy ABDOMEN: Obese, distended, soft, nontender and no organomegaly appreciated. EXTREMITIES: No significant edema, erythema or tenderness of lower extremity LABS: Lab Results Component Value Date WBC 9.3 06/04/2024 HGB 13.5 06/04/2024 HCT 43.1 06/04/2024 MCV 95.4 06/04/2024 PLT 356 06/04/2024 ASSESSMENT 1. Acute deep vein thrombosis (DVT) of calf muscle vein of right lower extremity (CMS/HCC) Patient is a very pleasant 63-year-old female, who has no family history of clotting disorder, had 2 episodes of provoked venous thrombosis, first was at age 23 in 1983 when she was and then couple months ago she had right gastrinomas vein thrombosis, most likely provoked becauseshe had severe feet pain (due to arthritis/plantar fasciitis). I explained patient in detail about difference between provoked and unprovoked phenomena, since shehas only couple episode both were provoked and this time almost after 40 years she had superficial venous thrombosis and may be venous thrombosis of gastro numerous deep vein, I suggest she does not need anticoagulation more than 3 months and if she is fully active she can discontinue anticoagulation completely but if she is not active then she should consider preventive dose of anticoagulation like apixaban 2.5 mg twice a day. There is no indication for coagulopathy workup. I explained patientdetail about difference between provoked and unprovoked phenomena as well as need for coagulopathy workup etc. PLAN: Recommend to discontinue anticoagulation next month if she is active enough, if she is not active and have still discomfort in both feet then she should go to preventive dose of anticoagulation like apixaban 2.5 mg twice a day. No indication for coagulopathy workup Return to office as needed Alexus Lopes MD cc: Daniel Ross,* documented in this encounter Plan of Treatment Upcoming Encounters Date Type Department Care Team (Late st Contact Info) Description 07/31/2024 3:00 PM EST Appointment [facility] CT Scan [address] [place] [address] 08/08/2024 3:15 PM EST Office Visit Thoracic Surgery - [place] [address] [address] Dewayne Stephens PA [address] [address] 08/20/2024 2:30 PM EST Office Visit Internal Medicine - [facility] [address] [place] [address] Zana Chappell MD [address] [place] [address] 08/21/2024 10:45 AM EST Office Visit Orthopedic Surgery [facility] 250 [address] [facility] [address] [place] [phone] Dewayne Cortez DPM 175 [facility] [address] [place] [address] 09/06/2024 10:30 AM EDT Office Visit Pulmonolgy - [place] 175 [facility] [address] [place] [phone] Ronda Henry MD 175 [facility] 200 [place] [address] 10/02/2024 10:45 AM EDT Office Visit Bariatric Surgery [facility] 175 [facility] [address] [place] [phone] Tommie Guy MD [address] [address] 01/28/2025 11:00 AM EDT Appointment Radiology Department [address] [address] 03/14/2025 10:30 AM EDT Office Visit Vascular Surgery - [place] 300 [facility] [address] [place] [address] Sandhya Eng PA 300 [facility] 210 [place] [address] documented as of this encounter Visit Diagnoses Diagnosis Acute deep vein thrombosis (DVT) of calf muscle vein of right lower extremity ([facility]) Encounter for screening mammogram for breast cancer documented in this encounter Discontinued Medications Medication Sig Discontinue Reason Start Date End Da te wheat dextrin (BENEFIBER CLEAR SF, DEXTRIN, ORAL) WHEAT DEXTRIN (BENEFIBER) POWDER : Take 4 g by mouth daily. 10/17/2023 07/09/2024 documented as of this encounter Orders Outpatient Referral Count Last Ordered Date Fir st Ordered Date AMB REFERRAL TO HEMATOLOGY 1 07/09/2024 documented in this encounter Additional Health Concerns Assessment Noted Time PHQ-9 Depression Total Score: 18 024 9:55 AM EST documented as of this encounter Care Teams Supervisor Sanding Relationship Specialty Start Date End Date Zana Chappell MD [address] [place] [address] PCP - General Internal Medicine 01/03/19 documented as of this encounter
--- OUTSIDE RECORDS SUMMARY | 2024-07-30 10:33 | XMS_ITS | Encounter Summary ---
Author Organization [facility] Address [address] [place] [address] Care Team Providers Care [employer] Sales Representative Name Role Phone Zana Chappell MD Primary Care Provider [phone] Reason for Visit * Reason Onset Date Comments TESTING 07/10/2024 Encounter Details Date Type Department Care Team ([facility] st Contact Info) Description 07/10/2024 Telephone [facility] [place] [address] [phone] Rodna Brady MD 175 [facility] 200 [place] [address] TESTING Social History Tobacco Use Types Packs/Day Years [...] as of this encounter Progress Notes * Josefina Cottrell MA - 07/10/2024 10:[address] brady Please advise patient requesting a ct scan order be placed and I contacted the patient and advised she already has a ct scan order from pcp and advised contact ct scan in [place] to schedule office visit * Fox Edvendra - 07/10/2024 9:01 AM EST Patient called to requesting a call back ,due to it has been 6 mnth since her scan, Patient brothermichel came back + fr cancer on his lungs. Patient stated that last year she lost her brother to lungcancer again. Patient will like to get scan again since she stated that previously in the past Patient had a black spot on her lungs. Just recently they also found a black spot on patient brother and it eneded being cancer. Patient is worry and will like to get checked.Please advice documented in this encounter Plan of Treatment Upcoming Encounters Date Type Department Care Team (Late st Contact Info) Description 07/31/2024 3:00 PM EST Appointment [facility] CT Scan [address] [place] [address] 08/08/2024 3:15 PM EST Office Visit Thoracic Surgery - [place] [address] [address] Dewayne Stephens PA [address] [address] 08/20/2024 2:30 PM EST Office Visit Internal Medicine - [address] [address] Zana Chappell MD [address] [place] [address] 08/21/2024 10:45 AM EST Office Visit Orthopedic Surgery [facility] [address] [phone] Dewayne Cortez DPM [address] [address] 09/06/2024 10:30 AM EDT Office Visit Pulmonolgy - [place] 175 [facility] 200 [place] [address] Ronda Brady MD 175 [facility] 200 [place] [address] 10/02/2024 10:45 AM EDT Office Visit Bariatric Surgery - [place] 175 [facility] 120 [place] [address] Tommie Guy MD 175 [facility] 120 [place] [address] 01/28/2025 11:00 AM EDT Appointment Radiology Department [address] [address] 03/14/2025 10:30 AM EDT Office Visit Vascular Surgery - [place] 300 [facility] 210 [place] [address] Sandhya Eng PA 300 [facility] 210 [place] [address] documented as of this encounter Visit Diagnoses Not on filedocumented in this encounter Additional Health Concerns Assessment Noted Time PHQ-9 Depression Total Score: 18 06/08/ 024 9:55 AM EST documented as of this encounter Care Teams [employer] Craft[employer] Sales Representative Relationship Specialty Start Date End Date Zana Chappell MD [address] [place] [address] PCP - General Internal Medicine 01/03/19 documented as of this encounter
== END 2024-07-30 09:58 | disposition home or self-care (01) ==
LOC: HO.MRI 09:57
PROVIDERS: PCP Internal Medicine; Visit Provider Psychiatry & Neurology Neurology
DX: R41.89 Other symptoms and signs involving cognitive functions and awareness (principal); R46.89 Other symptoms and signs involving appearance and behavior
CPT/HCPCS: 70551

== ENCOUNTER 2024-08-23 13:07 | Outpatient (AMB) | payer OTHER, SELFPAY ==
[2024-08-23 13:19] VITALS: BP 118/80; PULSE 78; O2SAT 98; BMI 37.6
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
--- OUTSIDE RECORDS SUMMARY | 2024-08-23 15:40 | XMS_ITS | Encounter Summary ---
Author Organization [facility] Address [address] [place] [address] Care Team Providers Care High Risk Ob Name Role Phone Zana Chappell MD Primary Care Provider [phone] [phone] Reason for Referral * Imaging (Routine) - Pending Review Specialty Diagnoses / Procedures Referred By Contac t Referred To Contact Radiology Diagnoses Plantar fascial fibromatosis Posterior tibial tendon dysfunction (PTTD) of both lower extremities Arthritis of left ankle Procedures MR Foot wo Contrast Left Dewayne Cortez DPM [address] [address] Phone: tel: fax: [facility] Referral ID Status Reason Start Date Expiration Date V isits Requested Visits Authorized [id number] Pending Review 08/21/2024 08/21/2025 1 1 Reason for Visit * Reason Comments Follow-up [place] foot pain Encounter Details Date Type Department Care Team (Late st Contact Info) Description 08/21/2024 10:45 AM EST Office Visit Orthopedic Surgery - [place] [address] [phone] Dewayne Cortez DPM [address] [address] Plantar fascial fibromatosis (Primary Dx); Posterior tibial tendon dysfunction (PTTD) of both lower extremities; Arthritis of left ankle Social History Tobacco Use Types Packs/Day Years Used Date Smoking Tobacco: Never Smokeless Tobacco: Never Alcohol Use Standard Drinks/Week Comments No 0 (1 standard drink = 0.6 oz pur e alcohol) Comments No Sex and Gender Information Value Date Recorded Sex Assigned at Female 07/27/2024 11:46 AM EST Legal Sex Female 12:25 PM EST Gender Identity Female 07/27/2024 11:46 AM EST Sexual Orientation Straight 08/21/2024 4: 18 PM EST documented as of this encounter Last Filed Vital Signs Vital Sign Reading Time Taken Comments Blood Pressure - - Pulse - - Temperature - - Respiratory Rate - - Oxygen Saturation - - Inhaled Oxygen Concentration - - Weight 106 kg (233 lb) 08/21/2024 10:35 AM EST Height 167.6 cm (5' 5.98 ) 08/21/2024 10:[address] Body Mass Index 37.63 08/21/2024 10:35 AM EST documented in this encounter Progress Notes * Dewayne Cortez DPM - 08/21/2024 10:45 AM EST S Patient presents today saying [...] 5 out of 10 and not improving Patient states pain is getting better she has been in the fracture boot occasionally shows which shoes that is tolerable she does note that she is very frustrated she is increased her activities as she has been taking of her blood thinners and wants to be more active and states that her left foot has become debilitating to her and is making difficult for her to be active where she would like to be ROS: GENERAL: Pt denies nausea, fever, vomiting, [...] residual deficits Z86.73 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.9 Anxiety F41.9 Hypothyroidism E03.9 Hyperlipidemia E78.5 Migraine G43.909 Depression F32.A Type 2 diabetes mellitus without complication, without long-term current use of insulin ([facility]) E11.9 Mild cognitive disorder F09 Postsurgical dumping [...] (BMI) of 40.0 to 44.9 in adult ([facility]) [E66.01, Z68.41] History of CVA (cerebrovascular accident) without residual deficits [Z86.73] 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 (HCC) [G37.9] Type 2 diabetes mellitus without complication, without long-term current use of insulin (HCC) [E11.9] Mild cognitive disorder [F09] Orthostatic hypotension [I95.1] Patient phone: [phone] (home) 2 Packet 11 ALBUTEROL SULFATE (ProAir [...] sural nerve left foot IMAGING: [facility] Imaging Result Report Patient: Loida Easley Date [...] report was sent to: Dewayne Cortez at [address] [address]. IMPRESSION: 1. Plantar fascial fibromatosis 2. Posterior tibial tendon dysfunction (PTTD) of both lower extremities 3. Arthritis of left ankle PLAN: Radiographs reviewed of both ankles and both feet consistent with osteoarthritic changes pes planusfoot type no acute fracture Patient follow-up with neurology has neuritis diabetics Worsening degenerative changes of both foot and ankles discussed and reviewed Patient's had issues being consistent with topical anti-inflammatories or utilizing any of the custom Worsening plantar fasciitis discussed worsening tendinitis discussed fracture boot for and dispensed he went to left lower extremities can continue with Given patient's pain is not improving despite plain radiographs discussed advanced imaging studies and MRI MRI ordered of the left foot Follow-up in 1 month Dewayne Cortez DPM documented in this encounter Plan of Treatment Upcoming Encounters Date Type Department Care Team (Late st Contact Info) Description 09/06/2024 10:30 AM EDT Office Visit Pulmonolgy [facility] [address] [phone] Ronda Henry MD [address] [address] 09/07/2024 1:30 PM EDT Appointment [facility] Bone Density [address] [place] [phone] 09/11/2024 10:15 AM EDT Office Visit Orthopedic Surgery - [place] [address] [address] Dewayne Cortez DPM [address] [address] 10/02/2024 10:45 AM EDT Office Visit Bariatric Surgery - [address] [phone] Tommie Guy MD [address] [address] 11/16/2024 8:30 AM EDT Office Visit Internal Medicine - [address] [address] Zana Chappell MD [address] [place] [address] 01/07/2025 11:00 AM EDT Appointment [facility] CT Scan [address] [place] [address] 01/10/2025 9:30 AM EDT Office Visit Internal Medicine - [address] [address] Zana Chappell MD [address] [place] [address] 01/28/2025 11:00 AM EDT Appointment Radiology Department - [address] [address] 03/14/2025 10:30 AM EDT Office Visit Vascular Surgery - [place] [address] [phone] Sandhya Eng PA 300 [facility] 210 [place] [address] Scheduled Orders Name Type Priority Associated Diagnoses Orde r Schedule MR Foot wo Contrast Left Imaging Routine Plantar fascial fibromatosis Posterior tibial tendon dysfunction (PTTD) of both lower extremities Arthritis of left ankle Expected: 08/21/2024, Expires: 08/21/2025 documented as of this encounter Visit Diagnoses Diagnosis Plantar fascial fibromatosis- Primary Posterior tibial tendon dysfunction (PTTD) of both lower extremities Arthritis of left ankle Encounter for screening mammogram for breast cancer documented in this encounter Additional Health Concerns Assessment Noted Time PHQ-9 Depression Total Score: 18 06/08/2 024 9:55 AM EST documented as of this encounter Care Teams High Risk Ob Relationship Specialty Start Date End Date Zana Chappell MD [address] [place] [address] PCP - General Internal Medicine 01/03/19 documented as of this encounter
--- OUTSIDE RECORDS SUMMARY | 2024-08-23 15:40 | XMS_ITS | Encounter Summary ---
Author Organization [facility] Address [address] [place] [address] Care Team Providers Care Control Board Operator Name Role Phone Zana Chappell MD Primary Care Provider [phone] [phone] Reason for Visit * Reason Onset Date Comments Fitting for DME 08/02/2024 Encounter Details Date Type Department Care Team (Late st Contact Info) Description 08/02/2024 Telephone Internal Medicine - [place] [address] [place] [phone] Zana Chappell MD [address] [place] [address] Fitting for DME Social History Tobacco Use Types Packs/Day Years [...] PM EST documented as of this encounter Progress Notes * Erick Flores MA - 08/06/2024 1:30 PM EST Durable medical equipment prescription request has been faxed to the DME Company : [facility] [facility] With cover sheet, demographics and nya notes Confirmation was received * Yesenia Ramsay - 08/02/2024 1:26 PM EST DME Fax from [facility] [employer] [facility] placed in Zana Chappell MD bin. Please sign, date, and fax back to [phone]. Thank you documented in this encounter Plan of Treatment Upcoming Encounters Date Type Department Care Team (Late st Contact Info) Description 09/06/2024 10:30 AM EDT Office Visit Pulmonolgy - [place] [address] [phone] Ronda Henry MD [address] [address] 09/07/2024 1:30 PM EDT Appointment [facility] Bone Density [address] [place] [phone] 09/11/2024 10:15 AM EDT Office Visit Orthopedic Surgery - [place] [address] [phone] Dewayne Cortez DPM [address] [address] 10/02/2024 10:45 AM EDT Office Visit Bariatric Surgery - [place] [address] [phone] Tommie Guy MD [address] [address] 11/16/2024 8:30 AM EDT Office Visit Internal Medicine - [facility] [address] [place] [address] Zana Chappell MD [address] [place] [address] 01/07/2025 11:00 AM EDT Appointment [facility] CT Scan [address] [place] [address] 01/10/2025 9:30 AM EDT Office Visit Internal Medicine - [address] [address] Zana Chappell MD [address] [place] [address] 01/28/2025 11:00 AM EDT Appointment Radiology Department - [address] [address] 03/14/2025 10:30 AM EDT Office Visit Vascular Surgery - [place] [address] [place] [phone] Sandhya Eng PA [address] [place] [address] [place] [address] documented as of this encounter Visit Diagnoses Not on filedocumented in this encounter Additional Health Concerns Assessment Noted Time PHQ-9 Depression Total Score: 18 024 9:55 AM EST documented as of this encounter Care Teams Control Board Operator Relationship Specialty Start Date End Date Zana Chappell MD [address] [place] [address] PCP - General Internal Medicine 01/03/19 documented as of this encounter
--- OUTSIDE RECORDS SUMMARY | 2024-08-23 15:40 | XMS_ITS | Encounter Summary ---
Author Organization [facility] Address [address] [place] [address] Care Team Providers Care Wound Care Center Consultant Name Role Phone Zana Chappell MD Primary Care Provider [phone] [phone] Reason for Visit * Reason Onset Date Comments TESTING 07/10/2024 Encounter Details Date Type Department Care Team ([facility] Contact Info) Description 07/10/2024 [facility]phone [facility] [place] [address] [phone] Ronda Brady MD 175 [facility] 200 [place] [address] TESTING Social History Tobacco Use Types Packs/Day [...] pcp and advised contact ct scan in [place] to schedule office visit * Fox Ramsay - 07/10/2024 9:01 AM EST Patient called [...] Upcoming Encounters Date Type Department Care Team ([facility] st Contact Info) Description 09/06/2024 10:30 AM EDT Office Visit Pulmonolgy - [place] [address] [phone] Ronda Brady MD [address] [address] 09/07/2024 1:30 PM EDT Appointment [facility] Bone Density [address] [place] [phone] 09/11/2024 10:15 AM EDT Office Visit Orthopedic Surgery - [place] [address] [phone] Dewayne Cortez DPRonald [address] [address] 10/02/2024 10:45 AM EDT Office Visit Bariatric Surgery - [place] [address] [phone] Tommie Guy MD [address] [address] 11/16/2024 8:30 AM EDT [facility] [address] [place] [address] Zana Chappell MD 305 [place] [address] 01/07/2025 11:00 AM EDT Appointment [facility] CT Scan [address] [place] [address] 01/10/2025 9:30 AM EDT Office Visit Internal Medicine - [address] [address] Zana Chappell MD 305 [place] [address] 01/28/2025 11:00 AM EDT Appointment Radiology Department [address] [address] 03/14/2025 10:30 AM EDT Office Visit Vascular Surgery - [place] [address] [place] [phone] Sandhya Eng PA [address] [place] [address] [place] [address] documented as of this encounter Visit Diagnoses Not on filedocumented in this encounter Additional Health Concerns Assessment Noted Time PHQ-9 Depression Total Score: 18 024 9:55 AM EST documented as of this encounter Care Teams Wound Care Center Consultant Relationship Specialty Start Date End Date Zana Chappell MD [address] [place] [address] PCP - General Internal Medicine 01/03/19 documented as of this encounter
--- OUTSIDE RECORDS SUMMARY | 2024-08-23 15:40 | XMS_ITS | Encounter Summary ---
Author Organization [facility] Address [address] [place] [address] Care Team Providers Care Mix Maker Name Role Phone Zana Chappell MD Primary Care Provider [phone] Reason for Referral * Imaging (Routine) - Closed Specialty Diagnoses / Procedures Referred By Stacy t Referred To Contact Radiology Diagnoses Multiple pulmonary nodules Procedures CT Chest wo Contrast Suzy Guevara NP [address] [address] Phone: tel: fax: [facility] Referral ID Status Reason Start Date Expiration Date Visits Re quested Visits Authorized [id number] Closed 06/30/2024 06/30/2025 1 1 Reason for Visit * Imaging (Routine) - Closed Specialty Diagnoses / Procedures Referred By Stacy gar Referred To Contact Radiology Diagnoses Multiple pulmonary nodules Procedures CT Chest wo Contrast Suzy Guevara NP [address] [address] Phone: tel: fax: [facility] Referral ID Status Reason Start Date Expiration Date Visits Re quested Visits Authorized [id number] Closed 06/30/2024 06/30/2025 1 1 Encounter Details Date Type Department Care Team (Latest Contact Info) Description 07/31/2024 2:44 PM EST - 07/31/2024 11:59 PM EST Hospital Encounter [facility] CT Scan [address] [place] [phone] Multiple pulmonary nodules Discharge Disposition: Home or Self Care Social History Tobacco Use Types Packs/Day Years [...] PM EST documented as of this encounter Medications at Time of Discharge amLODIPine (NORVASC) 5 mg tablet Take 2 Tablets by mouth daily. 08/31/2023 blood sugar diagnostic (FreeStyle Lite Strips) test strip Use to test blood sugar once daily for hypoglycemia Dx: e11.9 10/04/2023 blood-glucose meter kit Check blood sugar daily 10/03/2023 budesonide-formot Jd (SYMBICORT) 160-4.5 mcg/actuation inhaler Inhale 2 Puffs into the lungs 2 times daily. 1 inhaler and 11 refills 04/08/2023 cetirizine (ZyrTEC) 10 mg tablet Take 1 Tablet by mouth daily. 09/14/2022 cholecalciferol (VITAMIN D-3) 50 mcg (2,000 unit) tablet Take 1 tablet by mouth once daily 01/12/2024 Daily-Adelia, with folic acid, 400 mcg tablet Take 1 tablet by mouth 1 (one) time each day. 90 tablet 07/02/2024 escitalopram (LEXAPRO) 20 mg tablet Take 20 mg by mouth daily. 07/17/2021 FA/mv,Ca,iron,min /lycopene/lut (MULTIVITAL ORAL) Take 1 Tablet by mouth daily. 12/13/2023 famotidine (PEPCID) 20 mg tablet Take 1 Tablet by mouth 2 times daily. 12/22/2023 fluticasone propionate (FLONASE) 50 mcg/actuation nasal spray Use 1 spray(s) in each nostril once daily Strength: 50 MCG/ACT 08/30/2022 FREESTYLE LANCETS MISC Inject 1 Strip into the skin daily. Use to check BS as needed for hypoglycemia 09/26/2023 glucagon (Baqsimi) 3 mg/actuation nasal spray 1 Units by Nasal route as needed (Hypoglycemia). 12/07/2019 levothyroxine (SYNTHROID, LEVOTHROID) 88 mcg tabletIndications :Atrophy of thyroid (acquired) Take 1 tablet by mouth once daily 90 tablet 07/23/2024 nitroglycerin (NITROSTAT) 0.4 mg SL tablet DISSOLVE ONE TABLET UNDER THE TONGUE EVERY 5 MINUTES NEEDED FOR CHEST PAIN. DO NOT EXCEED A TOTAL OF 3 DOSES IN 15 MINUTES 25 tablet 2 04/30/2024 pantoprazole (PROTONIX) 40 mg EC tablet Take 1 tablet (40 mg total) by mouth 1 (one) time each day. Do not crush, chew, or split. 90 tablet 1 05/17/2024 simvastatin (ZOCOR) 5 mg tablet Take 1 Tablet by mouth at bedtime. 08/12/2023 SUMAtriptan (IMITREX) 100 mg tablet Take 1 Tab by mouth daily as needed for Migraine. May repeat dose once after 2 hours, if needed. 04/05/2019 topiramate (Topamax) 100 mg tabletIndications :Class 2 obesity due to excess calories with body mass index (BMI) of 38.0 to 38.9 in adult, unspecified whether serious comorbidity present Take 1 tablet (100 mg total) by mouth at bedtime. 30 each 1 07/27/2024 5 zolpidem (AMBIEN) 10 mg tablet Take 1 tablet by mouth at bedtime as needed. apixaban (Eliquis) 5 mg tablet Take 1 tablet (5 mg total) by mouth 2 (two) times a day. 180 tablet 05/31/2024 5 furosemide (LASIX) 20 mg tablet TAKE 1 TABLET BY MOUTH ONCE DAILY NEEDED FOR EDEMA 01/28/2023 5 phentermine 15 mg capsuleIndication s:Class 2 obesity due to excess calories with body mass index (BMI) of 38.0 to 38.9 in adult, unspecified whether serious comorbidity present TAKE 1 CAPSULE BY MOUTH TWICE DAILY MAX DAILY AMOUNT: 30 MG 60 capsule 07/17/2024 5 documented as of this encounter Discharge Disposition Disposition Code Departure Means Destination Home or Self Care documented in this encounter Plan of Treatment Upcoming Encounters Date Type Department Care Team (Late st Contact Info) Description 09/06/2024 10:30 AM EDT Office Visit Pulmonolgy - [place] [address] [facility] 200 [place] [phone] Ronda Henry MD 175 [facility] 200 [place] [address] 09/07/2024 1:30 PM EDT Appointment [facility] Bone Density 271 [place] [phone] 09/11/2024 10:15 AM EDT Office Visit Orthopedic Surgery [facility] [address] [phone] Dewayne Cortez DPM [address] [address] 10/02/2024 10:45 AM EDT Office Visit Bariatric Surgery [facility] [address] [phone] Tommie Guy MD [address] [address] 11/16/2024 8:30 AM EDT [facility] [address] [place] [phone] Zana Chappell MD [address] [place] [address] 01/07/2025 11:00 AM EDT Appointment [facility] CT Scan 271 [place] [phone] 01/10/2025 9:30 AM EDT Office Visit Internal Medicine - [address] [address] Zana Chappell MD 305 [place] [address] 01/28/2025 11:00 AM EDT Appointment Radiology Department - [address] [address] 03/14/2025 10:30 AM EDT Office Visit Vascular Surgery - [place] [address] [place] [address] Sandhya Eng PA [address] [place] [address] [place] [address] documented as of this encounter Procedures Procedure Name Priority Date/Time Associated Diagnosis Comments CT CHEST WO CONTRAST Routine 07/31/2024 3:04 PM EST Multiple pulmonary nodules documented in this encounter Results * CT Chest wo Contrast (07/31/2024 3:04 PM EST) Anatomical Region Laterality Modality Body Computed Tomogra phy 08/02/2024 9:14 AM EST Impressions 08/02/2024 9:40 AM EST Resolved bilateral upper lobe and right middle lobe groundglass opacities. New 2 cm groundglass opacity within the right upper lobe. Findings suggest inflammatory/infectious process. -------- FINAL REPORT -------- Dictated By: Anastacia Patel Dictated Date: 08/02/2024 09:14 ET Assigned Physician: Anastacia Patel Reviewed and Electronically Signed By: Anastacia Patel Signed Date: 08/02/2024 09:40 ET Workstation ID: [id number] Transcribed By: Self Edit Transcribed Date: 08/02/2024 09:20 ET Narrative 08/02/2024 9:40 AM EST INDICATION: Pulmonary nodules TECHNIQUE: CT scan of the chest obtained without contrast. Scanner: IORevolutioner 128 slice VCT Dose reduction technique: ASIR (Adaptive statistical iterative reconstruction) and/or AEC (automated exposure control) Dose: total exam DLP 305 mGY per cm COMPARISON: Compared to multiple prior studies most recent from February 09, 2024. FINDINGS: Lung larkin are well aerated without lobar infiltrates or effusions. Parenchymal scarring noted within the medial left lung base, lingula and paraspinal aspect of the right lower lobe. Again noted is shifting groundglass opacities with resolved opacity centrally in left upper lobe as well as right upper lobe. New 2 cm x 1 cm x 1 cm groundglass opacity within the right upper lobe seen best on series 3 image 70. Faint ill-defined groundglass attenuation within the lung bases and lingula likely related to atelectasis. 2 mm solid nodule noted within the right middle lobe on series 3 image 116 with 1 mm nodule noted just laterally on series 3 image 117 are unchanged. No thoracic lymphadenopathy. Trachea and esophagus are within normal limits. Heart normal in size and shape without pericardial effusion. Unopacified mediastinal vascular structures are grossly normal in course and caliber for the patient's age. Bony structures of the thorax are within normal limits. Visualized portion upper abdomen are unchanged. Procedure Note Aanstacia Patel MD - 08/02/2024 INDICATION: Pulmonary nodules TECHNIQUE: CT scan of the chest obtained without contrast. Scanner: Regenesance 128 slice VCT Dose reduction technique: ASIR (Adaptive statistical iterativereconstruction) and/or AEC (automated exposure control) Dose: total exam DLP 305 mGY per cm COMPARISON: Compared to multiple prior studies most recent from January. FINDINGS: Lung larkin are well aerated without lobar infiltrates or effusions.Parenchymal scarring noted within the medial left lung base, lingula andparaspinal aspect of the right lower lobe. Again noted is shifting groundglass opacities with resolved opacitycentrally in left upper lobe as well as right upper lobe. New 2 cm x 1 cmx 1 cm groundglass opacity within the right upper lobe seen best on series3 image 70. Faint ill-defined groundglass attenuation within the lungbases and lingula likely related to atelectasis. 2 mm solid nodule noted within the right middle lobe on series 3 image 116with 1 mm nodule noted just laterally on series 3 image 117 areunchanged. No thoracic lymphadenopathy. Trachea and esophagus are within normallimits. Heart normal in size and shape without pericardial effusion. Unopacified mediastinal vascular structures are grossly normal in courseand caliber for the patient's age. Bony structures of the thorax are within normal limits. Visualized portion upper abdomen are unchanged. IMPRESSION: Resolved bilateral upper lobe and right middle lobe groundglass opacities.New 2 cm groundglass opacity within the right upper lobe. Findings suggestinflammatory/infectious process. -------- FINAL REPORT -------- Dictated By: Anastacia Patel Dictated Date: 08/02/2024 09:14 ET Assigned Physician: Anastacia Patel Reviewed and Electronically Signed By: Anastacia Patel Signed Date: 08/02/2024 09:40 ET Workstation ID: [id number] Transcribed By: Self Edit Transcribed Date: 08/02/2024 09:20 ET Suzy Guevara HAND BUFFER IMG CT PROCEDURES Final Res ult documented in this encounter Visit Diagnoses Diagnosis Multiple pulmonary nodules Other diseases of lung, not elsewhere classified Encounter for screening mammogram for breast cancer documented in this encounter Additional Health Concerns Assessment Noted Time PHQ-9 Depression Total Score: 18 024 9:55 AM EST documented as of this encounter Care Teams Mix Maker Relationship Specialty Start Date End Date Zana Chappell MD [address] [place] [address] PCP - General Internal Medicine 01/03/19 documented as of this encounter
--- OUTSIDE RECORDS SUMMARY | 2024-08-23 15:40 | XMS_ITS | Encounter Summary ---
Author Organization [facility] Address [address] [place] [address] Care Team Providers Care Cathode Builder Name Role Phone Zana Chappell MD Primary Care Provider [phone] Reason for Referral * Imaging (Routine) - Pending Review Specialty Diagnoses / Procedures Referred By Contmerissa t Referred To Contact Radiology Diagnoses Multiple pulmonary nodules Procedures CT Chest wo Contrast Dewayne Stephens PA [address] [address] Phone: tel: fax: [address] [address] Phone: tel: Referral ID Status Reason Start Date Expiration Date V isits Requested Visits Authorized [id number] Pending Review 08/10/2024 08/10/2025 1 1 Reason for Visit * Reason Comments Follow-up Chest CT review Encounter Details Date Type Department Care Team (Late st Contact Info) Description 08/08/2024 3:15 PM EST Office Visit Thoracic Surgery - [place] [address] [phone] Dewayne Stephens PA [address] [address] Multiple pulmonary nodules (Primary Dx) Social History Tobacco Use Types Packs/Day Years [...] Sign Reading Time Taken Comments Blood Pressure 121/86 08/08/2024 3:07 PM EST Pulse 96 08/08/2024 3:07 PM EST Temperature 36.3 ??C (97.3 ??F) 08/08/2024 3:07 PM ES T Respiratory Rate 14 08/08/2024 3:07 PM EST Oxygen Saturation 99% 08/08/2024 3:07 PM EST Inhaled Oxygen Concentration - - Weight 105 kg (231 lb 8 oz) 08/08/2024 3:[address] Height 167.6 cm (5' 6 ) 08/08/2024 3:07 PM EST Body Mass Index 37.37 08/08/2024 3:07 PM EST documented in this encounter Progress Notes * ANTONIETA Lawrence - 08/10/2024 1:42 PM ESTAssociated Problem(s): Multiple pulmonary nodules Ms. Easley is a 64 yr. female, non-smoker never smoker with a family history of lung cancer, who Thoracic surgery has been following for waxing and waning pulmonary nodules. While in office we did review her most recent chest CT scan which shows resolved bilateral upper lobe and right middle lobe groundglass opacities with a new 2 cm groundglass opacity in the right upper lobe suggestive of an inflammatory/infectious process. And shifting ground glass opacity per in the left upper lobe. Decision was made to move forward with a 6-month chest CT scan which will be due in December 2024 and have a visit at the thoracic surgery department to discuss results. * ANTONIETA Lawrence - 08/08/2024 3:15 PM EST Images from the original note were not included. Thoracic Surgery Follow Up Visit Patient name: Loida Easley : 1960 Date of Visit: August 10, 2024 Care Team PCP: Zana Chappell MD Reason for Visit Chief Complaint Patient presents with Follow-up Chest CT review 07/31/24 History of Present Illness Ms. Easley is a 64 yr. female, non-smoker never smoker with a family history of lung cancer, who had a CT scan of the chest at [facility] done in October 2023 that when compared to previous scan done in December 2022 showed resolution of some previous groundglass areas in the lung, but there were also some new groundglass areas. She was referred to Dr. Fisher from Dr. Henry for evaluation of her multiple pulmonary nodules. She had pulmonary function testing done previously that shows an FEV1 of 77% predicted and a DLCO VA of 106% predicted. She also had no mediastinal lymphadenectomy or pleural fluid on her CT scan. During his last visit 6 months ago he was noted to have waxing waning groundglass nodules consistent with inflammatory or infectious ideology. Several pulmonary nodules had resolved andseveral remained stable there was also several new groundglass opacities. Decision at that time wasmade to move forward with a 6-month chest CT scan for which she presents for review today. While in office we did review her most recent chest CT scan which shows resolved bilateral upper lobe and right middle lobe groundglass opacities with a new 2 cm groundglass opacity in the right upper lobe suggestive of an inflammatory/infectious process. And shifting ground glass opacity per in the left upper lobe. She denies any symptoms related to infectious causes such as new or worsening shortness of breath, cough, fever, chills and states that she has no symptoms whatsoever. She was placed on an inhaler plus given a course of prednisone by her aba tutor which she states she never took or used. She denies having any exotic pets or recent travel out of the country. 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 Ochoa) no records GERD (gastroesophageal reflux disease) 10/01/2014 DX:GERD (gastroesophageal reflux disease) History of CVA (cerebrovascular accident) without residual deficits 07/25/2015 DX:History of CVA (cerebrovascular accident) without residual deficits History of gastric ulcer 10/23/2014 DX:History of gastric ulcer; COMMENT: Years ago; treated H pylori 1999 History of stomach ulcers DX:History of stomach ulcers HTN (hypertension) 01/30/2015 DX:HTN (hypertension) Hyperlipidemia 02/02/2016 DX:Hyperlipidemia Hypothyroidism 10/29/2015 DX:Hypothyroidism Migraine 11/16/2017 DX:Migraine; COMMENT: Complex migraine, f/u with neuro Farida Panasci Mild intermittent asthma, uncomplicated DX:Mild intermittent asthma, uncomplicated Morbid obesity with BMI of 45.0-49.9, adult ([facility]) 10/01/2014 DX:Morbid obesity with BMI of 45.0-49.9, adult ([facility]) Seasonal allergies 10/01/2014 DX:Seasonal allergies Skin cancer DX:Skin cancer Thrombophlebitis 10/01/2014 DX:Thrombophlebitis; COMMENT: Recurrent, usually in the legs Never had DVT Type 2 diabetes mellitus without complication, without long-term current use of insulin ([facility]) 10/17/2018 DX:Type 2 diabetes mellitus without complication, without long-term current use of insulin ([facility]) Varicose veins 10/01/2014 DX:Varicose veins Vitamin D deficiency 10/23/2014 DX:Vitamin D deficiency Patient Active Problem List Diagnosis Vitamin D deficiency Type 2 diabetes mellitus without complication, without long-term current use of insulin ([facility]) Thrombophlebitis Skin cancer Seasonal allergies Pruritus Postsurgical dumping syndrome Orthostatic hypotension Obesity (BMI 30-39.9) Multiple pulmonary nodules Moderate persistent asthma Mild cognitive disorder Migraine Hypothyroidism Hypoglycemia Hyperlipidemia HTN (hypertension) GERD (gastroesophageal reflux disease) Female cystocele Edema DVT (deep vein thrombosis) in Diverticulosis of colon Depression 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 Guy; SLEEVE OTHER SURGICAL HISTORY 1999 PROCEDURE: [place] TOTAL ABDOMINAL HYSTERECT W/WO RMVL TUBE OVARY; COMMENT: with BSO Allergies Allergen Reactions Atorvastatin Other Reaction(s): OTHER Muscle cramps Atorvastatin Calcium Other Seasonal Allergies Trazodone Swelling Current Outpatient Medications on File Prior to Visit Medication Sig Dispense Refill amLODIPine (NORVASC) 5 mg tablet Take 2 Tablets by mouth daily. apixaban (Eliquis) 5 mg tablet Take 1 tablet (5 mg total) by mouth 2 (two) times a day. 180 tablet 0 blood sugar diagnostic (FreeStyle Lite Strips) test strip Use to test blood sugar once daily for hypoglycemia Dx: e11.9 blood-glucose meter kit Check blood sugar daily budesonide-formoteroL (SYMBICORT) 160-4.5 mcg/actuation inhaler Inhale 2 Puffs into the lungs 2 times daily. 1 inhaler and 11 refills cetirizine (ZyrTEC) 10 mg tablet Take 1 Tablet by mouth daily. cholecalciferol (VITAMIN D-3) 50 mcg (2,000 unit) tablet Take 1 tablet by mouth once daily Daily-Adelia, with folic acid, 400 mcg tablet Take 1 tablet by mouth 1 (one) time each day. 90 tablet0 escitalopram (LEXAPRO) 20 mg tablet Take 20 mg by mouth daily. FA/mv,Ca,iron,min/lycopene/lut (MULTIVITAL ORAL) Take 1 Tablet by mouth daily. famotidine (PEPCID) 20 mg tablet Take 1 Tablet by mouth 2 times daily. fluticasone propionate (FLONASE) 50 mcg/actuation nasal spray Use 1 spray(s) in each nostril once daily Strength: 50 MCG/ACT FREESTYLE LANCETS MISC Inject 1 Strip into the skin daily. Use to check BS as needed for hypoglycemia furosemide (LASIX) 20 mg tablet TAKE 1 TABLET BY MOUTH ONCE DAILY NEEDED FOR EDEMA glucagon (Baqsimi) 3 mg/actuation nasal spray 1 Units by Nasal route as needed (Hypoglycemia). levothyroxine (SYNTHROID, LEVOTHROID) 88 mcg tablet Take 1 tablet by mouth once daily 90 tablet 0 nitroglycerin (NITROSTAT) 0.4 mg SL tablet DISSOLVE ONE TABLET UNDER THE TONGUE EVERY 5 MINUTES NEEDED FOR CHEST PAIN. DO NOT EXCEED A TOTAL OF 3 DOSES IN 15 MINUTES 25 tablet 2 pantoprazole (PROTONIX) 40 mg EC tablet Take 1 tablet (40 mg total) by mouth 1 (one) time each day.Do not crush, chew, or split. 90 tablet 1 phentermine 15 mg capsule TAKE 1 CAPSULE BY MOUTH TWICE DAILY MAX DAILY AMOUNT: 30 MG 60 capsule 0 simvastatin (ZOCOR) 5 mg tablet Take 1 Tablet by mouth at bedtime. SUMAtriptan (IMITREX) 100 mg tablet Take 1 Tab by mouth daily as needed for Migraine. May repeat dose once after 2 hours, if needed. topiramate (Topamax) 100 mg tablet Take 1 tablet (100 mg total) by mouth at bedtime. 30 each 1 zolpidem (AMBIEN) 10 mg tablet Take 1 tablet by mouth at bedtime as needed. No current facility-administered medications on file prior to visit. Social History Tobacco Use Smoking status: Never Smokeless tobacco: Never Substance Use Topics Alcohol use: No Drug use: Never Social History Social History Narrative Happily with 4 children. Adult children. Feels safe at home. Retired 09/2018 Feels safe at home Lives by herself Review of Systems Remaining 10 point review of systems negative at this time: Physical Exam Vitals: 08/08/24 1507 BP: 121/86 BP Location: Left arm Patient Position: Sitting BP Cuff Size: Large adult long Pulse: 96 Resp: 14 Temp: 36.3 ??C (97.3 ??F) TempSrc: Temporal SpO2: 99% Weight: 105 kg (231 lb 8 oz) Height: 1.676 m (66 ) General: Patient is sitting comfortably in no acute distress, well developed, well nourished Head: Normocephalic, atraumatic, symmetric Eyes: Sclera anicteric, eyelids without edema or erythema, +EOMS intact ENT: Oral mucosa and tongue are moist without lesions or exudates Neck: Soft, supple, symmetric, trachea midline, no crepitus, no mass visualized or palpated Cardiovascular: Regular rate and rhythm, no murmur/rubs/gallops, BUE and BLE without edema, no calftenderness bilaterally Respiratory: Lungs CTA B, breathing nonlabored, speaking in full sentences, on room air. No use of accessory muscles. No obvious chest wall abnormality or deformity Gastrointestinal: Soft, non-tender, non-distended, +normoactive bowel sounds. Lymphatic: no cervical, supraclavicular, infraclavicular, or other lymphadenopathy noted Neurological: Alert and oriented x 3, neurologic exam is grossly normal Psychiatric: No agitation, appropriate affect Chest Wall: No new nodularity. Incision line clean, dry and intact; no signs of erythema, induration or drainage. Pathology Micro / Labs Radiology I personally viewed the patient's current and past imaging studies, in addition to reviewing the dictated report from the reading radiologist. 08/10/24 CT Chest wo Contrast Narrative: INDICATION: Pulmonary nodules TECHNIQUE: CT scan of the chest obtained without contrast. Scanner: [employer] 128 slice VCT Dose reduction technique: ASIR [...] resolved opacity centrally in left upper lobe aswell as right upper lobe. New 2 cm x 1 cm x 1 cm groundglass opacity within the right upper lobe seen best on series 3 image 70. Faint ill- defined groundglass attenuation within the lung bases and [...] limits. Visualized portion upper abdomen are unchanged. Impression: Resolved bilateral upper lobe and right middle lobe groundglass opacities. New 2 cm groundglass opacity within the right upper lobe. Findings suggest inflammatory/infectious process. -------- FINAL REPORT -------- Dictated By: Anastacia Patel Dictated Date: 08/02/2024 09:14 ET Assigned Physician: Anastacia Patel Reviewed and Electronically Signed By: Anastacia Patel Signed Date: 08/02/2024 09:40 ET Workstation ID: [id number] Transcribed By: Self Edit Transcribed Date: 08/02/2024 09:20 ET Assessment and Plan Problem List Items Addressed This Visit Multiple pulmonary nodules - Primary Ms. Easley is a 64 yr. female, non-smoker never smoker with a family history of lung cancer, who Thoracic surgery has been following for waxing and waning pulmonary nodules. While in office we did review her most recent chest CT scan which shows resolved bilateral upper lobe and right middle lobe groundglass opacities with a new 2 cm groundglass opacity in the right upper lobe suggestive of an inflammatory/infectious process. And shifting ground glass opacity per in the left upper lobe. Decision was made to move forward with a 6-month chest CT scan which will be due in December 2024 and have a visit at the thoracic surgery department to discuss results. ANTONIETA Lawrence [facility] Thoracic Surgery 299 [facility], [address] [phone] documented in this encounter Plan of Treatment Upcoming Encounters Date Type Department Care Team (Late st Contact Info) Description 09/06/2024 10:30 AM EDT Office Visit Pulmonolgy - [place] [address] [phone] Ronda Henry MD 175 [facility] 200 [place] [address] 09/07/2024 1:30 PM EDT Appointment [facility] Bone Density [address] [place] [phone] 09/11/2024 10:15 AM EDT Office Visit Orthopedic Surgery - [place] [address] [phone] Dewayne Cortez DPM [address] [address] 10/02/2024 10:45 AM EDT Office Visit Bariatric Surgery - [place] [address] [phone] Tommie Guy MD [address] [address] 11/16/2024 8:30 AM EDT Office Visit Internal Medicine - [address] [phone] Zana Chappell MD [address] [place] [address] 01/07/2025 11:00 AM EDT Appointment [facility] CT Scan [address] [place] [address] 01/10/2025 9:30 AM EDT Office Visit Internal Medicine - [address] [phone] Zana Chappell MD [address] [place] [address] 01/28/2025 11:00 AM EDT Appointment Radiology Department [address] [phone] 03/14/2025 10:30 AM EDT Office Visit Vascular Surgery - [place] [address] [phone] Sandhya Eng PA [address] [address] Scheduled Orders Name Type Priority Associated Diagnoses Orde r Schedule CT Chest wo Contrast Imaging Routine Multiple pulmonary nodules Expected: 01/07/2025, Expires: 08/10/2025 documented as of this encounter Visit Diagnoses Diagnosis Multiple pulmonary nodules- Primary Other diseases of lung, not elsewhere classified Encounter for screening mammogram for breast cancer documented in this encounter Additional Health Concerns Assessment Noted Time PHQ-9 Depression Total Score: 18 06/08/ 024 9:55 AM EST documented as of this encounter Care Teams Cathode Builder Relationship Specialty Start Date End Date Zana Chappell MD [address] [place] [address] PCP - General Internal Medicine 01/03/19 documented as of this encounter
--- OUTSIDE RECORDS SUMMARY | 2024-08-23 15:40 | XMS_ITS | Encounter Summary ---
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 Spoke with patient. Annual Physical Examination appt booked 11/16/2024 w/Dr. Chappell in person. Transfer to Nasra Bond @ [id number]. PT is not on the March/2024 report. * Nasra Bond MA - 08/21/2024 4:38 PM EST Message left for patient to contact the Quality Department in reference to booking an Annual Physical Examination appt w/Dr. Chappell in 2024. Transfer to Nasra Bond @ [id number]. PT is not on the March/2024 report. documented in this encounter Plan of Treatment Upcoming Encounters Date Type Department Care Team (Late st Contact Info) Description 09/06/2024 10:30 AM EDT Office Visit Pulmonolgy - [place] [address] [phone] Ronda Henry MD [address] [address] 09/07/2024 1:30 PM EDT Appointment [facility] Bone Density 271 [place] [phone] 09/11/2024 10:15 AM EDT Office Visit Orthopedic Surgery - [place] [address] [phone] Dewayne Cortez DPM [address] [address] 10/02/2024 10:45 AM EDT Office Visit Bariatric Surgery - [place] [address] [phone] Tommie Guy MD [address] [address] 11/16/2024 8:30 AM EDT Office Visit Internal Medicine - [address] [phone] Zana Chappell MD 305 [place] [address] 01/07/2025 11:00 AM EDT Appointment [facility] CT Scan [address] [place] [address] 01/10/2025 9:30 AM EDT Office Visit Internal Medicine - [address] [phone] Zana Chappell MD 305 [place] [address] 01/28/2025 11:00 AM EDT Appointment Radiology Department - [address] [phone] 03/14/2025 10:30 AM EDT Office Visit Vascular Surgery - [place] [address] [place] [phone] Sandhya Eng PA [address] [place] [address] documented as of this encounter Visit Diagnoses Not on filedocumented in this encounter Additional Health Concerns Assessment Noted Time PHQ-9 Depression Total Score: 18 12/2 024 9:55 AM EST documented as of this encounter Care Teams Production Welder Relationship Specialty Start Date End Date Zana Chapplel MD [address] [place] [address] PCP - General Internal Medicine 01/03/19 documented as of this encounter
--- OUTSIDE RECORDS SUMMARY | 2024-08-23 15:40 | XMS_ITS | Encounter Summary ---
Author Organization [facility] Address [address] [place] [address] Care Team Providers Care Slide Forming Machine Tender Name Role Phone Zana Chappell MD Primary Care Provider [phone] Reason for Referral * Imaging (Routine) - Authorized Specialty Diagnoses / Procedures Referred By Contac t Referred To Contact Radiology Diagnoses Screening for osteoporosis Procedures BD Bone Density DXA Axial Skeleton BD Bone Density DXA Vertebral Fx Asmt Zana Chappell MD [address] [place] [address] Phone: tel: fax: [address] Phone: tel: Referral ID Status Reason Start Date Expiration Date V isits Requested Visits Authorized [id number] Authorized 08/20/2024 08/20/2025 1 1 Reason for Visit * Reason Comments Follow-up Encounter Details Date Type Department Care Team (Late st Contact Info) Description 08/20/2024 2:30 PM EST Office Visit Internal Medicine - [address] [phone] Zana Chappell MD [address] [place] [id number] History of DVT (deep vein thrombosis) (Primary Dx); Hypertension, unspecified type; Hyperlipidemia, unspecified hyperlipidemia type; Hypothyroidism, unspecified type; Lung nodules; Uncomplicated asthma, unspecified asthma severity, unspecified whether persistent; 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 (CMS/HCC); Screening for osteoporosis Social History Tobacco Use Types Packs/Day Years [...] Sign Reading Time Taken Comments Blood Pressure 120/76 08/20/2024 2:44 PM EST Pulse - - Temperature - - Respiratory Rate - - Oxygen Saturation - - Inhaled Oxygen Concentration - - Weight 106 kg (233 lb) 08/20/2024 2:44 PM EST Height 167.6 cm (5' 6 ) 08/20/2024 2:44 PM EST Body Mass Index 37.61 08/20/2024 2:44 PM EST documented in this encounter Progress Notes * Zana Chappell MD - 08/20/2024 2:30 PM ESTAssociated Problem(s): HTN (hypertension) Follow low-sodium diet. Continue current regimen of amlodipine. * Zana Chappell MD - 08/20/2024 2:30 PM ESTAssociated Problem(s): Hyperlipidemia Follow low-cholesterol diet. * Zana Chappell MD - 08/20/2024 2:30 PM ESTAssociated Problem(s): Hypothyroidism Continue current regimen of levothyroxine. 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 * Zana Chappell MD - 08/20/2024 2:30 PM EST CHIEF COMPLAINT: Chief Complaint Patient presents with Follow-up IDENTIFIER: Loida Easley is a 64 y.o. old female. HPI Patient is a 64-year-old woman who presents to the office today for medication review. Patient was seen by hematology/oncology on 07/09/2024 for acute DVT of right lower extremity. Patient had 2 episodes of provoked DVT (first at age 23 when she was and again in 2023 in the right gastrinomas vein). She does not need full dose anticoagulation more than 3 months if she is fullyactive. Anticoagulation can be discontinued after 3 months if she is active. If she is not active and still has discomfort in both feet then she should be on preventive dose of apixaban 2.5 mg twice a day. No indication for coagulopathy workup. She does follow-up with podiatry for her plantar fascitis was seen last on 07/04/2024. She has been seen by vascular surgery previously on 03/12/2024 for bilateral lower extremities varicose vein with pain, lymphedema. Recommended follow-up in 1 years time. She followed up with thoracic surgery on 08/08/2024 for her pulmonary nodules. Her recent CT chest was reviewed. Repeat CT chest was recommended in 6 months time which would be due around December 2024. Advised to follow-up with thoracic surgery department after that. Her last CT chest done on 07/31/2024 showed resolved bilateral upper lobe and right middle lobe groundglass opacities. No new 2 cm groundglass opacity in the right upper lobe. She does have a history of moderate persistent asthma and has been seen by pulmonology previously 03/09/2024. She is advised to continue Symbicort for asthma. She does have a history of CVA, demyelinating disease. She follows up with neurology and was seen last on 05/16/2024 for polyneuropathy, migraine. Neurology ordered an MRI of the brain. Patient underwent MRI brain on 07/30/2024 which showed: Consider demyelinating plaques, supratentorial compartment with similar morphology distribution. Noacute brain abnormality. She also follows up with bariatric surgery department seen on 06/15/2024 for her obesity and is on phentermine and topiramate. She does have hypertension, hyperlipidemia, hypothyroidism, GERD, mixed anxiety/depression compliant with her medication regimen. Her last screening mammogram done on 01/19/2024 showed no evidence of malignancy. Patient's last colonoscopy was done 08/25/2020 which showed 2 diminutive polyps, diverticulosis. Biopsy showed colonic mucosa with lymphoid aggregate. Repeat colonoscopy in 5 years. ROS: GENERAL: No malaise, significant weight loss or fever HEENT: No changes in hearing or vision, nose bleeds or other nasal problems RESPIRATORY: No cough, wheezing or shortness of breath CARDIOVASCULAR: No chest pain, leg swelling or palpitations GI: No abdominal discomfort, blood in stools or black stools NECK: No lumps, goiter, pain or significant neck swelling : No dysuria, frequency or incontinence MUSCULOSKELETAL:see hpi SKIN: No lesions, rash or itching NEURO: see hpi PAST MEDICAL HISTORY: Patient Active Problem List [...] complication, without long-term current use of insulin ([facility]) 10/17/2018 Depression 10/03/2018 Migraine 11/16/2017 Hyperlipidemia 02/02/2016 Hypothyroidism 10/29/2015 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 ([facility]) 10/29/2015 Anxiety 10/29/2015 Diverticulosis of colon 04/03/2015 Colonic polyp 04/03/2015 HTN (hypertension) 01/30/2015 DVT (deep vein thrombosis) in 01/30/2015 Vitamin D deficiency 10/23/2014 Thrombophlebitis 10/01/2014 Seasonal allergies 10/01/2014 Obesity (BMI 30-39.9) 10/01/2014 GERD (gastroesophageal reflux disease) 10/01/2014 Edema 10/01/2014 Other specified health status 10/01/2014 Past Surgical History: Procedure Laterality Date CHOLECYSTECTOMY 2012 PROCEDURE: HISTORICAL CHOLECYSTECTOMY COLONOSCOPY 2020 PROCEDURE: HISTORICAL COLONOSCOPY; COMMENT: polyps, rpt 5yrs GASTRIC BYPASS 02/05/2019 PROCEDURE: ME GASTRIC RSTCV W/BYP W/SM INT RCNSTJ LIMIT ABSRPJ; COMMENT: Dr. Guy; SLEEVE OTHER SURGICAL HISTORY 1999 PROCEDURE: ME TOTAL ABDOMINAL HYSTERECT W/WO RMVL TUBE OVARY; COMMENT: with BSO SOCIAL HISTORY: Social History Tobacco Use Smoking status: Never Smokeless tobacco: Never Substance Use Topics Alcohol use: No FAMILY HISTORY: Family History Problem Relation Name Age of Onset Hypertension Mother diabetes Hypertension Father CVA Tuberculosis Father Diabetes Sister Thyroid disease Sister Coronary artery disease Sister Mental illness Sister Schizophrenia Brother Depression Brother Lung cancer Brother DM. HTN Hypertension Brother Hypertension Brother Diabetes Paternal Grandfather Multiple sclerosis Daughter Depression Daughter Other (Other: raynaud's) Daughter Hypertension Son Breast cancer Aunt mat 50s maternal; unsure age Breast cancer Mother's side Mat cousin 30s Breast cancer Other mat cousin breast cancer 30's Colon cancer Neg Hx Ovarian cancer Neg Hx Family Status Relation Name Status Mother Alive Father at age 63 Sister Alive Sister Alive Brother Alive Brother Alive Brother Brother Alive Brother Alive PGF (Not Specified) Daughter Alive Daughter Alive Son Alive Aunt mat 50s Mother's tanya Mat cousin 30s Alive Other mat cousin cousin Neg Hx (Not Specified) Son Alive No partnership data on file MEDICATIONS DISCONTINUED/REORDERED: Medications Discontinued During This Encounter Medication Reason apixaban (Eliquis) 5 mg tablet furosemide (LASIX) 20 mg tablet ACTIVE MEDICATIONS: Outpatient Medications Marked as Taking for the 08/20/24 encounter (Office Visit) with Zana Chappell MD Medication Sig Dispense Refill amLODIPine (NORVASC) 5 mg tablet Take 2 Tablets by mouth daily. blood sugar diagnostic (FreeStyle Lite Strips) test [...] to check BS as needed for hypoglycemia glucagon (Baqsimi) 3 mg/actuation nasal spray 1 [...] crush, chew, or split. 90 tablet 1 simvastatin (ZOCOR) 5 mg tablet Take 1 [...] tablet by mouth at bedtime as needed. [DISCONTINUED] apixaban (Eliquis) 5 mg tablet Take 1 tablet (5 mg total) by mouth 2 (two) times a day. 180 tablet 0 [DISCONTINUED] furosemide (LASIX) 20 mg tablet TAKE 1 TABLET BY MOUTH ONCE DAILY NEEDED FOR EDEMA [DISCONTINUED] phentermine 15 mg capsule TAKE 1 CAPSULE BY MOUTH TWICE DAILY MAX DAILY AMOUNT: 30MG 60 capsule 0 ALLERGIES: Allergies Allergen Reactions Atorvastatin Other Reaction(s): OTHER Muscle cramps Atorvastatin Calcium Other Seasonal Allergies Trazodone Swelling PHYSICAL EXAM: Visit Vitals BP 120/76 Ht 1.676 m (66 ) Wt 106 kg (233 lb) BMI 37.61 kg/m?? OB Status Postmenopausal Smoking Status Never BSA 2.14 m?? EYES: PERRL, conjunctiva and sclera normal NOSE/SINUS: negative MOUTH/THROAT: no erythema or exudates NECK: negative HEART: regular rate, regular rhythm and no murmur LUNG: clear to auscultation LYMPH NODES: grossly normal ABDOMEN: Bowel sounds normoactive, no bruits, soft, non-tender, without organomegaly or palpable masses EXTREMITIES: No edema bilaterally. NEURO: Awake, alert and oriented x 3 Assessment & Plan History of DVT (deep vein thrombosis) Patient is very active. Apixaban has been discontinued. She has been made aware to stay active and not have a sedentary lifestyle. She also wants to come off the apixaban. If she ends up being immobile, she needs to go back on apixaban prophylactic dose of 2.5 mg twice a day. Hematology recommendations appreciated. Hypertension, unspecified type Follow low-sodium diet. Continue current regimen of amlodipine. Hyperlipidemia, unspecified hyperlipidemia type Follow low-cholesterol diet. Hypothyroidism, unspecified type Continue current regimen of levothyroxine. Lung nodules Being monitored by thoracic surgery. Repeat CT chest in 6 months from the last. Uncomplicated asthma, unspecified asthma severity, unspecified whether persistent Stable. She does not have any use of Symbicort. Will monitor for now. 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 Screening for osteoporosis Screening bone density scan ordered. Orders: BD Bone Density DXA Vertebral Fx Asmt; Future Today's documentation was made using voice recognition software.This note may contain grammatical errors secondary to this software. documented in this encounter Plan of Treatment Upcoming Encounters Date Type Department Care Team (Late st Contact Info) Description 09/06/2024 10:30 AM EDT Office Visit Pulmonolgy - [place] [address] [phone] Ronda Henry MD [address] [address] 09/07/2024 1:30 PM EDT Appointment [facility] Bone Density [address] [place] [phone] 09/11/2024 10:15 AM EDT Office Visit Orthopedic Surgery - [place] [address] [phone] Dewayne Cortez DPM [address] [address] 10/02/2024 10:45 AM EDT Office Visit Bariatric Surgery - [place] [address] [phone] Tommie Guy MD [address] [address] 11/16/2024 8:30 AM EDT Office Visit Internal Medicine - [address] [phone] Zana Chappell MD [address] [place] [phone] 01/07/2025 11:00 AM EDT Appointment [facility] CT Scan [address] [place] [phone] 01/10/2025 9:30 AM EDT Office Visit Internal Medicine - [address] [phone] Zana Chappell MD [address] [place] [phone] 01/28/2025 11:00 AM EDT Appointment Radiology Department [address] [phone] 03/14/2025 10:30 AM EDT Office Visit Vascular Surgery - [place] [address] [phone] Sandhya Eng PA 300 [facility] [address] [place] [address] Scheduled Orders Name Type Priority Associated Diagnoses Orde r Schedule BD Bone Density DXA Axial Skeleton Imaging Routine Screening for osteoporosis 1 Occurrences starting 08/20/2024 until 08/20/2025 documented as of this encounter Visit Diagnoses Diagnosis History of DVT (deep vein thrombosis)- Primary Hypertension, unspecified type Hyperlipidemia, unspecified hyperlipidemia type Hypothyroidism, unspecified type Lung nodules Other diseases of lung, not elsewhere classified Uncomplicated asthma, unspecified asthma severity, unspecified whether persistent 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 ([facility]) Screening for osteoporosis Special screening for osteoporosis Encounter for screening mammogram for breast cancer documented in this encounter Discontinued Medications Medication Sig Discontinue Reason Start Date End Da te apixaban (Eliquis) 5 mg tablet Take 1 tablet (5 mg total) by mouth 2 (two) times a day. 05/31/2024 08/20/2024 furosemide (LASIX) 20 mg tablet TAKE 1 TABLET BY MOUTH ONCE DAILY NEEDED FOR EDEMA 01/28/2023 08/20/2024 documented as of this encounter Orders Immunization/Injection Count Last Ordered Date First Ordered Date PNEUMOCOCCAL CONJUGATE 20 VA LENT (PREVNAR 20, PCV 20) 2MO AND OLDER 1 08/20/2024 documented in this encounter Additional Health Concerns Assessment Noted Time PHQ-9 Depression Total Score: 18 024 9:55 AM EST documented as of this encounter Care Teams Slide Forming Machine Tender Relationship Specialty Start Date End Date Zana Chappell MD [address] [place] [id number] PCP - General Internal Medicine 01/03/19 documented as of this encounter
--- OUTSIDE RECORDS SUMMARY | 2024-08-23 15:40 | XMS_ITS | Clinical Summary ---
Author Organization 175 [facility] Address [address] [place] [address] Phone Care Team Providers Care Electric Needle Specialist Name Role Phone Zana Chappell MD Primary Care Provider [phone] Allergies Active Allergy Reactions Criticality Noted Date Comments Atorvastatin 08/27/2015 Other Reaction(s): OTHER Muscle cramps Atorvastatin Calcium 04/13/2024 Other 12/03/2015 Seasonal Allergies Trazodone Swelling 08/17/2016 Medications amLODIPine (NORVASC) 5 mg tablet Take 2 Tablets by mouth daily. 08/31/19 24 Active blood-glucose meter kit Check blood sugar daily 10/03/19 24 Active budesonide-for moteroL (SYMBICORT) 160-4.5 mcg/actuation inhaler Inhale 2 Puffs into the lungs 2 times daily. 1 inhaler and 11 refills 04/08/20 23 025 Active cetirizine (ZyrTEC) 10 mg tablet Take 1 Tablet by mouth daily. 09/15/19 23 Active cholecalcifero l (VITAMIN D-3) 50 mcg (2,000 unit) tablet Take 1 tablet by mouth once daily 01/12/20 24 Active escitalopram (LEXAPRO) 20 mg tablet Take 20 mg by mouth daily. 07/17/19 22 Active famotidine (PEPCID) 20 mg tablet Take 1 Tablet by mouth 2 times daily. 12/22/19 24 Active fluticasone propionate (FLONASE) 50 mcg/actuation nasal spray Use 1 spray(s) in each nostril once daily Strength: 50 MCG/ACT 08/31/19 23 Active FREESTYLE LANCETS MISC Inject 1 Strip into the skin daily. Use to check BS as needed for hypoglycemia 09/26/19 24 Active glucagon (Baqsimi) 3 mg/actuation nasal spray 1 Units by Nasal route as needed (Hypoglycemia). 12/07/19 20 Active blood sugar diagnostic (FreeStyle Lite Strips) test strip Use to test blood sugar once daily for hypoglycemia Dx: e11.9 10/04/19 24 Active FA/mv,Ca,iron, min/lycopene/l ut (MULTIVITAL ORAL) Take 1 Tablet by mouth daily. 12/13/19 24 Active simvastatin (ZOCOR) 5 mg tablet Take 1 Tablet by mouth at bedtime. 08/12/19 24 Active SUMAtriptan (IMITREX) 100 mg tablet Take 1 Tab by mouth daily as needed for Migraine. May repeat dose once after 2 hours, if needed. 04/05/20 19 Active zolpidem (AMBIEN) 10 mg tablet Take 1 tablet by mouth at bedtime as needed. Active nitroglycerin (NITROSTAT) 0.4 mg SL tablet DISSOLVE ONE TABLET UNDER THE TONGUE EVERY 5 MINUTES NEEDED FOR CHEST PAIN. DO NOT EXCEED A TOTAL OF 3 DOSES IN 15 MINUTES 25 tablet 2 04/30/20 24 Active pantoprazole (PROTONIX) 40 mg EC tablet Take 1 tablet (40 mg total) by mouth 1 (one) time each day. Do not crush, chew, or split. 90 tablet 1 05/17/20 24 Active Daily-Adelia, with folic acid, 400 mcg tablet Take 1 tablet by mouth 1 (one) time each day. 90 tablet 07/02/19 25 Active levothyroxine (SYNTHROID, LEVOTHROID) 88 mcg tabletIndicati ons:Atrophy of thyroid (acquired) Take 1 tablet by mouth once daily 90 tablet 07/23/19 25 Active topiramate (Topamax) 100 mg tabletIndicati ons:Class 2 obesity due to excess calories with body mass index (BMI) of 38.0 to 38.9 in adult, unspecified whether serious comorbidity present Take 1 tablet (100 mg total) by mouth at bedtime. 30 each 1 07/27/19 25 025 Active phentermine 15 mg capsuleIndicat ions:Class 2 obesity due to excess calories with body mass index (BMI) of 38.0 to 38.9 in adult, unspecified whether serious comorbidity present TAKE 1 CAPSULE BY MOUTH TWICE DAILY MAX DAILY AMOUNT 2 CAPSULES 60 capsule 08/20/19 25 Active furosemide (LASIX) 20 mg tablet TAKE 1 TABLET BY MOUTH ONCE DAILY NEEDED FOR EDEMA 01/29/20 23 025 Discontinued apixaban (Eliquis) 5 mg tablet Take 1 tablet (5 mg total) by mouth 2 (two) times a day. 180 tablet 05/31/20 24 025 Discontinued topiramate (TOPAMAX) 50 mg tabletIndicati ons:Class 2 obesity due to excess calories with body mass index (BMI) of 38.0 to 38.9 in adult, unspecified whether serious comorbidity present Take 1 tablet (50 mg total) by mouth 1 (one) time each day. 30 each 1 05/31/20 24 025 Discontinued phentermine 15 mg capsuleIndicat ions:Class 2 obesity due to excess calories with body mass index (BMI) of 38.0 to 38.9 in adult, unspecified whether serious comorbidity present TAKE 1 CAPSULE BY MOUTH TWICE DAILY MAX DAILY AMOUNT: 30 MG 60 capsule 07/17/19 25 025 Discontinued Active Problems Problem Noted Date Diagnosed Date [...] be better managed then on by her pet house sitter. Patient will call with any questions or concerns prior to her next appointment. Assessment & Plan (08/10/2024 1:42 PM EST): Ms. Easley is a 64 yr. female, [...] the thoracic surgery department to discuss results. Moderate persistent asthma 12/22/2022 Overview (04/13/2024): - [...] 10/03/2018 Overview (04/13/2024): F/u behavioral health at [facility] Migraine 11/16/2017 Overview (04/13/2024): Complex migraine, f/u with neuro Dr. Melchionna Hyperlipidemia 02/02/2016 Assessment & Plan (08/20/2024 4:40 PM EST): Follow low-cholesterol diet. Hypothyroidism 10/29/2015 Assessment & Plan (08/20/2024 4:40 PM EST): Continue current regimen of levothyroxine. 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 Anxiety 10/29/2015 Diverticulosis of colon 04/03/2015 Colonic polyp 04/03/2015 Overview (04/13/2024): [facility], [place] 03/10/15, Rpt 5 y HTN (hypertension) 01/30/2015 Assessment & Plan (08/20/2024 4:40 PM EST): Follow low-sodium diet. Continue current regimen of amlodipine. DVT (deep vein thrombosis) in 01/31/20 15 Overview (04/13/2024): LLE in 3 months OAC [...] Encounters Date Type Department Care Team Description 08/21/2024 10:45 AM EST Office Visit Orthopedic Surgery [facility] [address] [phone] Dewayne Cortez DPM Plantar fascial fibromatosis (Primary Dx); Posterior tibial tendon dysfunction (PTTD) of both lower extremities; Arthritis of left ankle 08/21/2024 Telephone [facility] - [address] [phone] Nasra Bond [place] Medicare Annual Wellness Visit Subsequent (PE DUE 2024) 08/20/2024 2:30 PM EST Office Visit Internal Medicine - [address] [phone] Zana Chappell MD History of DVT (deep vein thrombosis) (Primary Dx); Hypertension, unspecified type; Hyperlipidemia, unspecified hyperlipidemia type; Hypothyroidism, unspecified type; Lung nodules; Uncomplicated asthma, unspecified asthma severity, unspecified whether persistent; 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 ([facility]); Screening for osteoporosis 08/08/2024 3:15 PM EST Office Visit Thoracic Surgery - [facility] [address] [phone] Dewayne Stephens PA Multiple pulmonary nodules (Primary Dx) 08/02/2024 Telephone Internal Medicine - [address] [phone] Zana Chappell MD Fitting for DME 07/31/2024 2:44 PM EST - 07/31/2024 11:59 PM EST Hospital Encounter [facility] CT Scan [address] [place] [phone] Multiple pulmonary nodules Discharge Disposition: Home or Self Care 07/18/2024 10:30 AM EST Office Visit Orthopedic Surgery [facility] [address] [phone] Dewayne Cortez DPM Plantar fascial fibromatosis (Primary Dx); Arthritis of left ankle; Posterior tibial tendon dysfunction (PTTD) of both lower extremities; Diabetic mononeuropathy simplex ([facility]/HCC) 07/10/2024 Telephone Pulmonolgy [facility] 175 [facility] [address] [place] [phone] Ronda Henry MD TESTING 07/09/2024 1:30 PM EST Office Visit [facility] Hematology Oncology [address] [place] [phone] Alexus Lopes MD Acute deep vein thrombosis (DVT) of calf muscle vein of right lower extremity (CMS/HCC) 07/04/2024 10:00 AM EST Office Visit Orthopedic Surgery [place] [phone] [facility] [address] [place] [phone] Dewayne Cortez DPM Arthritis of left ankle (Primary Dx); Bilateral foot pain; Bilateral ankle pain; Plantar fascial fibromatosis; Arthritis of right ankle; Posterior tibial tendon dysfunction (PTTD) of both lower extremities 06/14/2024 11:30 AM EST Office Visit Internal Medicine - [facility] [address] [place] [phone] Francisco Adan NP Paronychia of great toe, right (Primary Dx) 06/14/2024 Telephone Internal Medicine - [facility] [address] [place] [phone] Zana Chappell MD Prior Authorization 06/05/2024 Telephone Internal Medicine - [facility] [address] [place] [phone] Zana Chappell MD Med Refill 05/31/2024 1:45 PM EST Office Visit Bariatric Surgery [facility] 175 [facility] [address] [place] [phone] Tommie Guy MD Class 2 obesity due to excess calories with body mass index (BMI) of 38.0 to 38.9 in adult, unspecified whether serious comorbidity present (Primary Dx) 05/30/2024 10:15 AM EST Office Visit Orthopedic Surgery - [facility] [address] [phone] Dewayne Cortez, DPM Arthritis of right ankle (Primary Dx); Arthritis of left ankle; Plantar fascial fibromatosis; Metatarsalgia of both feet; Diabetic mononeuropathy simplex (CMS/HCC); Posterior tibial tendon dysfunction (PTTD) of both lower extremities from Last 3 Months Immunizations Name Administration Dates Next Due Influenza Quadravalent, MDCK , 0.5ml, preservative free (Flucelvax) 6mo and older 03/26/2022,03/26/2020 Influenza trivalent, 0.5mL, preservative free (Fluarix; FluLaval; Fluzone) ages 6mo and older (Afluria) 3 years and older 04/05/2024 [employer] SARS-CoV-2 COVID-19, mRNA, LNP-S, preservative free 04/03/2022,09/16/2021 Pneumococcal conjugate 20 va lent (Prevnar 20, PCV 20) 2mo and older 08/20/2024 Pneumococcal polysaccharide 23 valent (Pneumovax 23) 2yo and older 12/05/2018 Td Tetanus diptheria (Tdvax) 7yo and older 12/22 Tdap Tetanus diptheria acell ular pertussis (Boostrix; Adacel) 7yo and older 08/30/2012 Surgical History Surgery Date Site/Laterality Comments OTHER SURGICAL HISTORY 1999 PROCEDURE: AK TOTAL ABDOMINAL HYSTERECT W/WO RMVL TUBE OVARY; COMMENT: with BSO CHOLECYSTECTOMY 2012 PROCEDURE: HISTORICAL CHOLECYSTECTOMY GASTRIC BYPASS 02/05/2019 PROCEDURE: AK GASTRIC RSTCV W/BYP W/SM INT RCNSTJ LIMIT ABSRPJ; COMMENT: Dr. Guy; SLEEVE COLONOSCOPY 2020 PROCEDURE: HISTORICAL COLONOSCOPY; COMMENT: polyps, rpt 5yrs Medical History Medical History Date Comments Varicose veins 10/01/2014 DX:Varicose vein s Thrombophlebitis 10/01/2014 DX:Thrombophleb itis; COMMENT: Recurrent, usually in the legs Never had DVT Seasonal allergies 10/01/2014 DX:Seasonal a llergies Morbid obesity with BMI of 4 5.0-49.9, adult (CMS/HCC) 10/01/2014 DX:Morbid obesity with BMI o f 45.0-49.9, adult ([facility]) GERD (gastroesophageal reflux disease) 5 DX:GERD (gastroesophageal [...] residual deficits Demyelinating changes in bra in ([facility]) 10/29/2015 DX: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 ([facility]) Anxiety 10/29/2015 DX:Anxiety Hypothyroidism 10/29/2015 DX:Hypothyroidis m Hyperlipidemia 02/02/2016 DX:Hyperlipidemi a Migraine 11/16/2017 DX:Migraine; COM MENT: Complex migraine, f/u with neuro Farida Panasci Type 2 diabetes mellitus wit hout complication, without long-term current use of insulin ([facility]) 10/17/2018 DX:Type 2 diabetes mellitus without complication, without long-term current use of insulin ([facility]) Skin cancer DX:Skin cancer Mild intermittent asthma, [...] Orientation Straight 08/21/2024 4: 18 PM EST Obstetrics History Last Filed Vital Signs Vital Sign Reading Time Taken Comments Blood Pressure 120/76 08/20/2024 2:44 PM EST Pulse 96 08/08/2024 3:07 PM [...] Mass Index 37.63 08/21/2024 10:35 AM EST Plan of Treatment Upcoming Encounters Date Type Department Care Team (Late st Contact Info) Description 09/06/2024 10:30 AM EDT Office Visit Pulmonolgy [facility] [address] [phone] Ronda Henry MD [address] [address] 09/07/2024 1:30 PM EDT Appointment [facility] Bone Density [address] [place] [phone] 09/11/2024 10:15 AM EDT Office Visit Orthopedic Surgery [facility] [address] [phone] Dewayne Cortez DPM [address] [address] 10/02/2024 10:45 AM EDT Office Visit Bariatric Surgery - [facility] [address] [phone] Tommie Guy MD [address] [address] 11/16/2024 8:30 AM EDT Office Visit Internal Medicine - [address] [phone] Zana Chappell MD [address] [place] [phone] 01/07/2025 11:00 AM EDT Appointment [facility] CT Scan [address] [place] [phone] 01/10/2025 9:30 AM EDT Office Visit Internal Medicine - [address] [phone] Zana Chappell MD [address] [place] [phone] 01/28/2025 11:00 AM EDT Appointment Radiology Department [address] [phone] 03/14/2025 10:30 AM EDT Office Visit Vascular Surgery - [facility] [address] [phone] Sandhya Eng PA [address] [phone] Health Maintenance Due Date Last Done Comments Diabetes: Annual Foot Exam 1969 Diabetes: Annual Retina Eye Exam 1969 RSV Immunization Patients 60+ Years Old (1 - Risk 60-74 years 1-dose series) 2019 Medicare Annual Wellness Visit 06/05/2022 Osteoporosis Screening [...] history exists Depression Screening 06/08/2025 06/08/2024, 06/28/19 Colorectal Cancer Screening: Colonoscopy 08/25/2025 08/25/2020 Breast Cancer Screening 01/18/2026 01/19/20, 01/19/2024, 01/14/2023, Additional history exists Cholesterol Screening (Lipid Panel) 10/20/2028 10/21/2023, 10/21/2023 DTaP,Tdap,and Td Vaccines (3 - Td or Tdap) 12/22/2032 12/22/2022, 08/30/2012 Hepatitis C Screening Completed 10/01/2014 Zoster Vaccines Completed 03/11/2023, 01/08/2023 Influenza Vaccine Completed 04/05/2024, , 03/26/2020 Pneumococcal Vaccine: 50+ Years Completed 08/20/2024, 12/05/2018 Pneumococcal Vaccine: Pediatrics (0 to 5 Years) and At-Risk Patients (6 to 64 Years) Completed 08/20/2024, 12/05/2018 HIB Vaccines Aged Out No longer eligi [...] patient's age to complete this topic Meningococcal B Vacine Aged Out No lo nger eligible based on patient's age to complete this topic RSV Immunization Patients Under 20 months Aged Out No longer eligible based on patient's age to complete this topic Varicella Vaccines Aged Out No longer eligible based on patient's age to complete this topic Procedures Procedure Name Priority Date/Time Associated Diagnosis Comments CT CHEST WO CONTRAST Routine 07/31/2024 3:04 PM EST Multiple pulmonary nodules EXTERNAL MRI REPORT 07/30/2024 EXTERNAL MRI REPORT 07/30/2024 XR ANKLE 3+ VIEWS RIGHT Routine 07/04/2024 [...] Arthritis of left ankle Plantar fascial fibromatosis SCREENING MAMMOGRAPHY BI 2-VIEW BREAST INC CAD [...] Recently Relevant to Health Maintenance Results * CT Chest wo Contrast (07/31/2024 [...] Dictated Date: 08/02/2024 09:14 ET Assigned Physician: Anastaica Patel Reviewed and Electronically Signed By: Anastacia Patel Signed Date: 08/02/2024 09:40 ET Workstation ID: [id number] Transcribed By: Self Edit Transcribed Date: 08/02/2024 09:20 ET Narrative 08/02/2024 9:40 AM EST INDICATION: Pulmonary nodules TECHNIQUE: CT scan of the chest obtained without contrast. Scanner: Piiku 128 slice VCT Dose reduction technique: ASIR [...] portion upper abdomen are unchanged. Procedure Note Amanda, Parshant, MD - 08/02/2024 INDICATION: Pulmonary nodules TECHNIQUE: CT scan of the chest obtained without contrast. Scanner: Go Long Wirelesser 128 slice VCT Dose reduction technique: ASIR [...] Signed Date: 08/02/2024 09:40 ET Workstation ID: [id number] Transcribed By: Self Edit Transcribed Date: 08/02/2024 09:20 ET us Suzy Guevara HELP DESK TECHNICIAN IMG CT PROCEDURES Final Res ult * External MRI Report (07/30/2024) Only the most recent of2 resultswithin the time period is included. Anatomical Region Laterality Modality Magnetic Resonan ce Provider [facility] IMG MRI PROCEDURES Final Result * XR Ankle 3+ Views Right (07/04/2024 [...] ?? Dewayne Cortez DPM IMG XR PROCEDURES Final R esult * XR Foot 3+ Views bilat (07/04/2024 10:07 AM EST) Anatomical Region Laterality Modality Lower Extremities, Foot Bilateral Computed Radiography Narrative 07/04/2024 12:34 PM EST Right foot ??3 views No fracture. No radiopaque foreign ?joint spaces ? Arthritis ?? moderate ?? Left foot 3 views No fracture. No radiopaque foreign ?joint spaces ? Arthritis ?? moderate ?? Dewayne Cortez DPM IMG XR PROCEDURES Final R esult * Injection tendon or ligament (07/04/2024 10:00 AM EST) Narrative Dewayne Cortez DPM - 07/04/2024 10:00 AM EST Dewayne Cortez DPM ? 07/04/2024 12:36 PM Injection tendon or ligament Indications: pain Details: 25 G needle Medications: 0.5 mL lidocaine (PF) 1 %; 20 mg triamcinolone acetonide 40 mg/mL Informed Consent: ??Site: ??Foot ligament tendon Dewayne Cotrez DPM IN CLINIC/BEDSIDE ORDERAB LES Final Result * Treponema pallidum antibody with reflex to RPR and particle agglutination (06/04/2024 1:02 PM EST) Pathologist [facility] T. Pallidum Antibodies Negative Negative LAB CHEMISTRY METHOD 06/04/2024 5:45 PM EST [facility] Blood Venous blood specimen / Unknown Venipuncture / Unknown 06/04/2024 1:02 PM EST 06/04/2024 1:02 PM EST us Laly Stewart MD LAB BLOOD ORDERABLES Final Res ult Performing Organization Address [facility]/ZIP Co de Phone Number [facility] [address] [place] [address], [place] [phone] * Thyroid stimulating hormone with reflex to free t4 and free t3 (06/04/2024 1:02 PM EST) [facility] TSH 3.60 0.40 - 4.00 mcIU/mL LAB CHEMISTRY METHOD 06/04/2024 5:34 PM EST [facility] Blood Venous blood specimen / Unknown Venipuncture / Unknown 06/04/2024 1:02 PM EST 06/04/2024 1:02 PM EST us Laly Stewart MD LAB BLOOD ORDERABLES Final Res ult Performing Organization Address [facility] Co de Phone Number [facility] [address] [place] [address], [place] [phone] * Arsenic, blood (06/04/2024 1:02 PM EST) [facility] Arsenic, Blood <3 <23 mcg/L 06/13/2024 4:37 PM EST [facility] Comment: (Note) Whole Blood Arsenic level >100 mcg/L is indicative of acute/chronic exposure. Urine is usually the best specimen for the analysis of arsenic in body fluids. Blood levels tend to be low even when urine concentrations are high. This test was developed and its analytical performance characteristics have been determined by [facility]. It has not been cleared or approved by the FDA. This assay has been validated pursuant to the CLIA regulations and is used for clinical purposes. [facility] [address] [facility] [address] [facility] [address] Mark Johnston MD, PhD Test Performed at: [facility] [address] [facility] [address], [address] [place], [place] ??[phone] ? I Seema Johnston MD, PhD Blood Venous blood specimen / Unknown Venipuncture / Unknown 06/04/2024 1:02 PM EST 06/04/2024 1:02 PM EST Laly Stewart MD LAB BLOOD ORDERABLES Final Res ult [facility] [address] [place] [address] * ROYCE IFA with titer and pattern (06/04/2024 1:02 PM EST) Pathologist [facility] ROYCE Negative Negative 06/06/2024 2:16 PM EST [facility] Blood Venous blood specimen / Unknown Venipuncture / Unknown 06/04/2024 1:02 PM EST 06/04/2024 1:02 PM EST Laly Stewart MD LAB BLOOD ORDERABLES Final Res ult [facility] [address] [place] [address], [place] [phone] * (ABNORMAL) CBC auto differential (06/04/2024 1:02 PM EST) Pathologist [facility] WBC 9.3 4.8 - 10.8 K/mcL LAB HEMETOLOGY METHOD 06/04/2024 2:34 PM EST [facility] RBC 4.50 3.80 - 4.80 M/mcL LAB HEMETOLOGY METHOD 06/04/2024 2:34 PM EST [facility] Hemoglobin 13.5 11.5 - 16.0 g/dL LAB HEMETOLOGY METHOD 06/04/2024 2:34 PM [facility] Hematocrit 43.1 35.0 - 47.0 % LAB HEMETOLOGY METHOD 06/04/2024 2:34 PM [facility] MCV 95.4 79.0 - 98.0 FL LAB HEMETOLOGY METHOD 06/04/2024 2:34 PM [facility] MCH 29.9 27.0 - 32.0 pcg LAB HEMETOLOGY METHOD 06/04/2024 2:34 PM [facility] MCHC 31.3(L) 32.0 - 37.0 g/dL LAB HEMETOLOGY METHOD 06/04/2024 2:34 PM [facility] RDW 14.3 11.0 - 15.0 % LAB HEMETOLOGY METHOD 06/04/2024 2:34 PM [facility] Platelets 356 130 - 400 K/mcL LAB HEMETOLOGY METHOD 06/04/2024 2:34 PM [facility] MPV 10.8 7.0 - 11.0 FL LAB HEMETOLOGY METHOD 06/04/2024 2:34 PM [facility] NRBC 0.0 <1.0 % LAB HEMETOLOGY METHOD 06/04/2024 2:34 PM [facility] NRBC Absolute 0.00 <0.10 K/mcL LAB HEMETOLOGY METHOD 06/04/2024 2:34 PM [facility] Neutrophils Relative 64.9 % LAB HEMETOLOGY METHOD 06/04/2024 2:34 PM [facility] Lymphocytes Relative 26.1 % LAB HEMETOLOGY METHOD 06/04/2024 2:34 PM [facility] Monocytes Relative 6.6 % LAB HEMETOLOGY METHOD 06/04/2024 2:34 PM [facility] Eosinophils Relative 1.4 % LAB HEMETOLOGY METHOD 06/04/2024 2:34 PM EST [facility] Basophils Relative 0.6 % LAB HEMETOLOGY METHOD 06/04/2024 2:34 PM [facility] Immature Granulocytes Relative 0.4 % LAB HEMETOLOGY METHOD 06/04/2024 2:34 PM [facility] Neutrophils Absolute 6.03 1.50 - 7.00 K/mcL LAB HEMETOLOGY METHOD 06/04/2024 2:34 PM EST [facility] Lymphocytes Absolute 2.43 1.00 - 5.00 K/mcL LAB HEMETOLOGY METHOD 06/04/2024 2:34 PM [facility] Monocytes Absolute 0.61 0.20 - 1.00 K/mcL LAB HEMETOLOGY METHOD 06/04/2024 2:34 PM [facility] Eosinophils Absolute 0.13 0.00 - 0.50 K/mcL LAB HEMETOLOGY METHOD 06/04/2024 2:34 PM EST [facility] Basophils Absolute 0.06 0.00 - 0.20 K/mcL LAB HEMETOLOGY METHOD 06/04/2024 2:34 PM EST [facility] Immature Granulocytes Absolute 0.04(H) 0.00 - 0.03 K/mcL LAB HEMETOLOGY METHOD 06/04/2024 2:34 PM EST [facility] Blood Venous blood specimen / Unknown Venipuncture / Unknown 06/04/2024 1:02 PM EST 06/04/2024 1:02 PM EST us Laly Stewart MD LAB BLOOD ORDERABLES Final Res ult [facility] [address] [place] [address], * Mercury, blood (06/04/2024 1:02 PM EST) [facility] Mercury Whole Blood <5 <11 mcg/L 06/12/2024 10:41 PM EST [facility] Comment: (Note) This test was developed and its analytical performance characteristics have been determined by [facility]. It has not been cleared or approved by the FDA. This assay has been validated pursuant to the CLIA regulations and is used for clinical purposes. [facility] [address] [facility] [address] [facility] [address] Mark Johnston MD, PhD Test Performed at: [facility] [address] [address], [address] [place], [place] ??[phone] ? I Seema Johnston MD, PhD Blood Venous blood specimen / Unknown Venipuncture / Unknown 06/04/2024 1:02 PM EST 06/04/2024 1:02 PM EST Laly Stewart MD LAB BLOOD ORDERABLES Final Res ult Performing Organization Address City/[facility]/ZIP Co de Phone Number [facility] [address] [place] [address] * Borrelia burgdorferi antibody (06/04/2024 1:02 PM EST) [facility] Lyme Ab Negative Negative LAB CHEMISTRY METHOD 06/05/2024 10:13 AM EST [facility] Comment: No laboratory evidence of infection with B. burgdorferi (Lyme disease). Negative results may occur in patients recently infected (<=14 days) with B. burgdorferi. ??If recent infection is suspected, repeat testing on a new sample collected in 7-14 days is recommended. Blood Venous blood specimen / Unknown Venipuncture / Unknown 06/04/2024 1:02 PM EST 06/04/2024 1:02 PM EST us Laly Stewart MD LAB BLOOD ORDERABLES Final Res ult Performing Organization Address City/[facility]/ZIP Co de Phone Number [facility] [address] [place] [address], * (ABNORMAL) Sedimentation rate (06/04/2024 1:02 PM EST) Sed Rate 33(H) 0 - 30 mm/hr LAB HEMETOLOGY METHOD 06/04/2024 2:44 PM EST [facility] Blood Venous blood specimen / Unknown Venipuncture / Unknown 06/04/2024 1:02 PM EST 06/04/2024 1:02 PM EST us Laly Stewart MD LAB BLOOD ORDERABLES Final Res ult [facility] [address] [place] [address], * Lead (06/04/2024 1:02 PM EST) Lead 0.5 <5.0 ug/dL 06/07/2024 9:51 AM EST [facility] Comment: CDC recommendations for clinical follow [...] developed and the performance characteristics determined by [employer]. It has not been cleared or approved by the FDA. The laboratory is regulated under CLIA as qualified to perform high-complexity testing. This test is used for patient testing purposes. It should not be regarded as investigational or for research. Test performed at [facility], [address] , [place], [place] ??[address] ? [phone] Miesha Ugarte MD, PhD - Production Exped[employer] Blood Venous blood specimen / Unknown Venipuncture / Unknown 06/04/2024 1:02 PM EST 06/04/2024 1:02 PM EST us Laly Stewart MD LAB BLOOD ORDERABLES Final Res ult [facility] [address] [place] [address] * (ABNORMAL) Folate (06/04/2024 1:02 PM EST) Pathologist [facility] Folate >20.0(H) 2.8 - 17.0 ng/ml LAB CHEMISTRY METHOD 06/04/2024 5:53 PM EST [facility] Blood Venous blood specimen / Unknown Venipuncture / Unknown 06/04/2024 1:02 PM EST 06/04/2024 1:02 PM EST us Laly Stewart MD LAB BLOOD ORDERABLES Final Res ult Performing Organization Address City/[facility]/ZIP Co de Phone Number [facility] [address] [place] [address], [place] [phone] * Vitamin B12 (06/04/2024 1:02 PM EST) [facility] Vitamin B-12 511 250 - 900 pcg/mL LAB CHEMISTRY METHOD 06/04/2024 5:53 PM EST [facility] Blood Venous blood specimen / Unknown Venipuncture / Unknown 06/04/2024 1:02 PM EST 06/04/2024 1:02 PM EST us Laly Stewart MD LAB BLOOD ORDERABLES Final Res ult [facility] [address] [place] [address], [place] [phone] * Comprehensive metabolic panel (06/04/2024 1:02 PM EST) Sodium 140 133 - 145 mmol/L LAB CHEMISTRY METHOD 06/04/2024 5:29 PM [facility] Potassium 4.1 3.5 - 5.5 mmol/L LAB CHEMISTRY METHOD 06/04/2024 5:29 PM [facility] Chloride 107 96 - 110 mmol/L LAB CHEMISTRY METHOD 06/04/2024 5:29 PM [facility] CO2 25 21 - 32 mmol/L LAB CHEMISTRY METHOD 06/04/2024 5:29 PM [facility] Anion Gap 8 3 - 11 LAB CHEMISTRY METHOD 06/04/2024 5:29 PM [facility] Glucose 99 70 - 100 mg/dL LAB CHEMISTRY METHOD 06/04/2024 5:29 PM [facility] BUN 23 5 - 25 mg/dL LAB CHEMISTRY METHOD 06/04/2024 5:29 PM [facility] Creatinine 1.03 0.50 - 1.10 mg/dL LAB CHEMISTRY METHOD 06/04/2024 5:29 PM [facility] eGFR 61 >=60 mL/min/1. 73m2 LAB CHEMISTRY METHOD 06/04/2024 5:29 PM [facility] Comment:Calculation based on the??Chronic Kidney Disease Epidemiology Collaboration (CKD-EPI) equation refit??without adjustment for race. BUN/Creatinine Ratio 22.3 LAB CHEMISTRY METHOD 06/04/2024 5:29 PM [facility] Calcium 9.5 8.5 - 10.5 mg/dL LAB CHEMISTRY METHOD 06/04/2024 5:29 PM [facility] AST (SGOT) 17 10 - 42 unit/L LAB CHEMISTRY METHOD 06/04/2024 5:29 PM [facility] ALT (SGPT) 30 10 - 60 unit/L LAB CHEMISTRY METHOD 06/04/2024 5:29 PM [facility] Alkaline Phosphatase 72 42 - 121 unit/L LAB CHEMISTRY METHOD 06/04/2024 5:29 PM EST [facility] Total Protein 7.4 6.0 - 8.0 g/dL LAB CHEMISTRY METHOD 06/04/2024 5:29 PM EST [facility] Albumin 3.8 3.2 - 5.0 g/dL LAB CHEMISTRY METHOD 06/04/2024 5:29 PM EST [facility] Total Bilirubin 0.7 0.0 - 1.4 mg/dL LAB CHEMISTRY METHOD 06/04/2024 5:29 PM EST [facility] Blood Venous blood specimen / Unknown Venipuncture / Unknown 06/04/2024 1:02 PM EST 06/04/2024 1:02 PM EST us Laly Stewart MD LAB BLOOD ORDERABLES Final Res ult [facility] [address] [place] [address], * Injection tendon or ligament (05/30/2024 10:15 AM EST) Narrative Dewayne Cortez DPM - 05/30/2024 10:15 AM EST Dewayne Cortez DPM ? 05/30/2024 12:46 PM Injection tendon or ligament Indications: pain Details: 25 G needle Medications: 0.5 mL lidocaine (PF) 1 %; 20 mg triamcinolone acetonide 40 mg/mL Informed Consent: ??Site: ??Foot ligament tendon us Dewayne Cortez DPM IN CLINIC/BEDSIDE ORDERAB LES Final Result * Injection tendon or ligament (05/30/2024 10:15 AM EST) Dewayne Luong DPM - 05/30/2024 10:15 AM EST Dewayne Cortez DPM ? 05/30/2024 12:46 PM Injection tendon or ligament Indications: pain Details: 25 G needle Medications: 0.5 mL lidocaine (PF) 1 %; 20 mg triamcinolone acetonide 40 mg/mL Informed Consent: ??Site: ??Foot ligament tendon us Dewayne Cortez DPM IN CLINIC/BEDSIDE ORDERAB LES Final Result * SCREENING MAMMOGRAPHY BI 2-VIEW BREAST INC [...] Recommendation: Routine annual screening mammography is recommended Result [facility] Zana Chappell MD IMG XR PROCEDURES Final R esult * Hemoglobin A1c (10/21/2023) [facility] Hemoglobin A1C 5.3 <=6.5 % Blood Venous blood specimen / Unknown Result [facility] Provider LAB BLOOD ORDERABLES Susy l Result * (ABNORMAL) Lipid panel (10/21/2023) [facility] LDL/HDL Ratio 3 0 - 4 Triglycerides 64 0 - 150 mg/dL Cholesterol 183 0 - 200 mg/dL HDL 68 >=40 mg/dL LDL Cholesterol 103(A) 0 - 100 mg/dL Blood Venous blood specimen / Unknown Result [facility] Provider LAB BLOOD ORDERABLES Susy l Result * Depression Screening (06/28/2023) [facility] Depression Screening Abstracted Result [facility] Provider HEALTH MAINTENANCE Final Result * Colonoscopy (08/25/2020) [facility] Colonoscopy Abstracted, No interpretation Anatomical Region Laterality Modality Other Result [facility] Provider HEALTH MAINTENANCE Final Result * Urine Albumin Creatinine Ratio (08/08/2019) [facility] Urine Albumin Creatinine Ratio Abstracted Result [facility] Provider HEALTH MAINTENANCE Final Result * Hepatitis C Screening (10/01/2014) [facility] Hepatitis C Screening Abstracted Result [facility] Provider HEALTH MAINTENANCE Final Result from Last 3 Months or Most Recently Relevant to Health Maintenance Insurance [employer] Member Subscriber Plan / Payer (Ef fective 2018-Present) Name:Loida Easley Relation to Subscriber:Self Name:Loida Easley Payer ID:[id number] Group ID:[id number] Type:Not on file Address: [place] [address] [address] [phone] Care Teams Electric Needle Specialist Relationship Specialty Start Date End Date Zana Chappell MD [address] [place] [address] PCP - General Internal Medicine 01/03/19
== END 2024-08-23 13:39 | disposition home or self-care (01) ==
PROVIDERS: PCP Internal Medicine; Visit Provider Psychiatry & Neurology Neurology
DX: G62.9 Polyneuropathy, unspecified (principal); G43.909 Migraine, unspecified, not intractable, without status migrainosus
CPT/HCPCS: 99214

== ENCOUNTER → 2024-08-23 13:07 | Outpatient (BNVA) | payer OTHER, SELFPAY | PROVIDERS: PCP Internal Medicine; Visit Provider Psychiatry & Neurology Neurology | DX: G43.909 Migraine, unspecified, not intractable, without status migrainosus (principal); G62.9 Polyneuropathy, unspecified | CPT/HCPCS: 99212 ==